=== PATIENT | female | born 1960 | race Caucasian/White ===

== ENCOUNTER 2016-10-24 05:18 | Inpatient (IN) | payer BC ==
[~2016-10-24] VITALS: Ht 172.7 cm; Wt 112.2 kg
--- NOTE | ~2016-10-24 | DS ---
[facility]GE[facility] 56 Y [address] ROOM: [place] [address] LOCATION: GPCU ADMIT DATE: 10/24/2016 Discharge Summary DISCHARGE DATE: 10/27/2016 FAMILY PHYSICIAN: Derrell Chaney MD ATTENDING PHYSICIAN: eDrrell Chaney patient of Dr. Chaney as well as Dr. Linares. REASON FOR ADMISSION: 1. Hdc-DG-tsmpbbu elevation myocardial infarction. 2. Chronic systolic congestive heart failure. 3. Ischemia involving basal inferolateral wall area, which is a small segment, basal anterior small area and basal inferior small area. 4. Her infarct-related vessel is probably obtuse marginal 2. 5. Cardiac catheterization revealed her bypasses to be open and her last stent placed about a year ago to be open. 6. Left ventricular ejection fraction has decreased from 40% to 45% in October 2015 to about 30% now by echo and 28% by nuclear study. 7. Moderate mitral stenosis. 8. Moderately dilated left ventricle with moderate to severe diffuse hypokinesia. 9. Morbid obesity. 10. Rheumatoid arthritis. 11. Type 2 diabetes. 12. Hypertension. 13. Chronic immunosuppression. 14. Mixed dyslipidemia. 15. Multiple myocardial infarctions in the past in 1999 and 2008. 16. Peripheral neuropathy. 17. Degenerative joint disease. Last cardiac catheterization and bypass grafting was in 2008 in [facility] with a mitral valve repair at that time. HOME MEDICATIONS: 1. Aspirin 325 mg a day. 2. Atorvastatin 80 mg a day. 3. Wellbutrin SR 150 mg every day. 4. Carvedilol 6.25 b.i.d. 5. Zyrtec 10 mg a day. 6. Ferrous sulfate 325 mg a day. 7. Lasix 40 mg a day. 8. Gabapentin 300 mg 3 times a day. 9. Insulin. 10. Levothyroxine 125 mcg once a day. PATIENT'S NAME: GONZALES [facility] AGE: 56 Y [address] ROOM: [place] [address] LOCATION: GPCU ADMIT DATE: 10/24/2016 Discharge Summary DISCHARGE DATE: 10/27/2016 FAMILY PHYSICIAN: Derrell Chaney MD ATTENDING PHYSICIAN: Derrell Chaney 11. Magnesium oxide 400 mg every day. 12. Methotrexate 2.5 mg, 20 mg on Sunday. 13. Multivitamin once a day. 14. Entresto one b.i.d. 15. Senna, acetaminophen, and tramadol. 16. Glimepiride 2 mg 3 times a day. 17. Aspirin 325 mg a day. 18. Clopidogrel 75 mg a day. 19. Xeljanz. 20. Prednisone 5 mg a day. 21. Metformin, she can start taking from Sunday 1 gram twice a day. Lisinopril and Aldactone were discontinued in the place of Entresto. Simvastatin was discontinued in the place of atorvastatin. HOSPITAL COURSE: The patient's chest pain resolved by next day and it was clear she had a wgv-NS-wmmhafq elevation TX. Her EKG, however, showed no acute changes. She had a cardiac catheterization, which suggested the possibility of a small second obtuse marginal to be the infarct-related vessel. Her stent from previous year was widely patent in the proximal LAD. All her bypasses seemed to be working appropriately. She does have moderate MS. Her EF, however, had considerably decreased. The small areas of ischemia probably correspond to the smaller branches having lesions. The wisdom of trying to get these opened up is somewhat questionable at this time, but it is always a possibility to look at the right coronary artery in terms of intervention. I am planning on sending her home since the LV function has decreased considerably compared to 1 year ago on Life Vest given her young age. If the belief is that the non-STEMI caused her EF to drop, she may actually become a candidate for ICD in approximately a month or if this is more chronic than that, maybe she ought to be on medical treatment for 3 months before checking her EF and considering BiV-ICD. I have made arrangements for her to follow up with Dr. Jasper Linares. MD RAS ACUNA/zina /[id number] d: 10/27/162251 t: 10/31/16 1234, DISCHARGE SUMMARY
--- NOTE | ~2016-10-24 | ESTC ---
Cardiac Perfusion Imaging Demographics Patient Name GONZALES Shannon Gender Female Patient Number [id number] Race Visit Number [id number] [place] [id number] Room Number G6307 Accession Number [id number] Height 68 inches Date of 1960 Weight 239 pounds Interpreting Sam Holbrook Date of study Physician Supervising /GISSELP Sam Holbrook NM Technologist Radha Matthews MD Ordering Physician Sam Holbrook Stress Drew North MD crime lab technician RVT Stress ECG Reading Sam Holbrook Nurse Dennis Zepeda Physician undercover agent Admit Source:Emergency department. Procedure Type: Nuclear Stress Test:Pharmacological, Lexiscan, Cardiolite Stress Test Indications: NSTEMI. Risk Factors The patient risk factors include:prior PCI;prior CABG;obesity, former tobacco use, treated hypercholesterolemia, treated hypertension, family history of premature CAD, insulin treated diabetes mellitus, last creatinine: 0.9 mg/dl, prior valve surgery/procedure , dyslipidemia, renal failure, prior RI and creatinine clearance: 122.28 ml/min. Conclusions Summary No TID. Medium apical moderate to severe fixed defect most consistent with prior RI. Small moderate ischemia involving 1.mid inferolateral,2.basal anterior and 3.basal inferior segments. LVEF:28%. Severe diffuse hypokinesia noted. Stress Protocols Resting ECG RSR. Pre-stress physical exam: Un changed. Predicted HR: 166 bpm ECG Findings No ECG changes suggestive of ischemia. Arrhythmias No rhythm abnormality. Symptoms None. Stress Interpretation Asymptomatic with Lexiscan. Mildly hypertensive BP response. No ischemia. No arrythmias. Imaging Results High risk findings Summed scores - Summed stress score: 24 - Summed rest score: 12 - Summed difference score: 12 Stress ejection Ejection fraction:28 % EDV :312 ml ESV :224 ml Stroke volume :88 ml LV mass :287 gr LV size:Enlarged LV LV systolic function impairment: Severe Imaging Protocols Rest Stress Isotope:Tc99m Sestamibi IV Isotope: Tc99m Sestamibi IV Isotope dose:14.38 mCi Isotope dose:39.6 mCi Date:10/26/2016 07:53 Date:10/26/2016 10:32 Technique: SPECT Technique: Gated Supine SPECT Supine IV remains in place after procedure. Scan Time:45-60 minutes post Scan Time:45-60 minutes post injection injection Procedure Medications - Regadenoson (Lexiscan) 0.4 mg IV over 10-15 sec. I.V. 0.4 mg. Medical History Admission Medications + +------+ + +---------+ + !Name !Dosage!Times per day !Start date!Stop date!Details ! + +------+ + +---------+ + !Statin (any) ! ! ! ! ! ! + +------+ + +---------+ + !Aspirin (any) ! ! ! ! ! ! + +------+ + +---------+ + !Beta Jessee (any) ! ! ! ! ! ! + +------+ + +---------+ + !Clopidogrel ! ! ! ! ! ! + +------+ + +---------+ + !SHY Inhibitor (any) ! ! ! ! ! ! + +------+ + +---------+ + Admission Data Admission date: 10/24/2016 Admission Time: 06:46 Hospital Status: Inpatient. Signatures dtt: Sheron Vargas dtd: Physician Self Edit
--- NOTE | ~2016-10-24 | CATH ---
Cardiac Diagnostic Report Demographics Patient Name GONZALES Shannon Gender Female Date of 1960 Age 56 year(s) Patient Number [id number] Date of Study 10/27/2016 Visit Number [id number] Room Number G6307 [place] [id number] Ht 172.72 cm Wt 108.4 kg Referring Sam Primary Physician Physician Sheron OCAMPO Performing Sam Secondary Physician Physician Sheron Murillo MD Diagnostic Sam Assisting Physician Physician Sheron OCAMPO Interventional Physician Intern Retail Physician Addendum Added procedure description Findings and Conclusions Diagnostic Findings and Conclusion LVEDP:18 SV graft to PDA:100%. Stent to mid LAD done in 2016 is patent. RCA appears codominant. JAMA is most likeky OM2. Diagnostic Recommendations 1.Stress? 2.Medical management. Procedure Description The patient was brought to the diagnostic cardiac catheterization-EP laboratory in the fasting, non-sedated state. Informed consent was obtained in the written and verbal form after the risks and benefits were explained. The patient had no further questions and agreed to proceed. The planned puncture-incision site(s) were shaved and prepped with ChloraPrep and draped in the usual sterile manner. Conscious sedation, supplemental oxygen, and pain control medications were delivered by a registered nurse under physician guidance. Surface ECG rhythm, blood pressure measurement, and pulse oximetry were monitored throughout the procedure. Arterial access. The access site was infiltrated with lidocaine. The vessel was entered with the Seldinger technique. A sheath was advanced into the vessel and used for catheter placement. Selective left coronary angiography. A catheter was advanced into the left coronary vessel ostium under Fluoroscopic guidance. Contrast was injected by hand. Images were obtained in multiple projections. Selective right coronary angiography. A catheter was advanced into the right coronary vessel ostium under fluoroscopic guidance. Contrast was injected by hand. Images were obtained in multiple projections. Selective SVG angiography. A catheter was advanced into the graft proximal anastomosis under fluoroscopic guidance. Contrast was injected by hand. Images were obtained in multiple projections. Selective SVG angiography. A catheter was advanced into the graft proximal anastomosis under fluoroscopic guidance. Contrast was injected by hand. Images were obtained in multiple projections. Left heart catheterization. A catheter was advanced across the aortic valve to the left ventricle under fluoroscopic guidance. Resting hemodynamics were obtained. Arterial artery hemostasis. Hemostasis was achieved. The patient was transferred to a regular nursing floor via cart accompanied by a nurse. The patient left the laboratory in stable condition. Procedure Procedure Type Diagnostic procedure Angiographic Findings Dominance: Mixed Cardiac Arteries and Lesion Findings LMCA: Minor Luminal Irregularities. LAD: Minor Luminal Irregularities.Stent patent. Retrograde collaterals to the Right. Diagonal:100%.There is a previous stent on Mid LAD Mid subsection. LCx: Minor Luminal Irregularities.OM1 proximally tapers to 80%. Distal OM2:100%. RCA: Minor Luminal Irregularities.Co dominant vessel.Proximal 80%. There is mild diffuse disease noted. Cardiac Grafts - There is a Vein graft that originates at the Aorta Right and attaches to the 1st Diag (Free ELDON to BERMAN to RI and OM1 is patent.) and to the Prox CX (Y graft). - There is a Vein graft that originates at the Aorta Right and attaches to the R PDA (SV graft to PDA 100%.). Coronary Tree Procedure Data Procedure Date Date: 10/27/2016Start: 09:18 AM Medical History Allergies - Morphine. - Morphine. - Other:(ciprofloxacin). Risk Factors The patient risk factors include:prior PCI;prior CABG;obesity, treated hypercholesterolemia, treated hypertension, family history of premature CAD, insulin-treated diabetes mellitus, last creatinine: 0.9 mg/dl, creatinine clearance: 122.28 ml/min, prior valve surgery/procedure, dyslipidemia, renal failure, former tobacco use and prior CA . Admission Data Admission Date: 10/24/2016 Admission Time: 06:46 AM Admit Source: Emergency department Insurance Payors: Private health insurance. Admission Medications + +------+------+ + + + + !Medication !Dosage!Times !Last !Last !Administered !Comments ! ! ! !Per !Delivery !Delivery ! ! ! ! ! !Day !Date !Time ! ! ! + +------+------+ + + + + !Statin (any)! ! ! ! ! ! ! + +------+------+ + + + + !Aspirin ! ! ! ! ! ! ! !(any) ! ! ! ! ! ! ! + +------+------+ + + + + !Beta Jessee! ! ! ! ! ! ! !(any) ! ! ! ! ! ! ! + +------+------+ + + + + !Clopidogrel ! ! ! ! ! ! ! + +------+------+ + + + + !SHY ! ! ! ! ! ! ! !Inhibitor ! ! ! ! ! ! ! !(any) ! ! ! ! ! ! ! + +------+------+ + + + + Clinical Evaluation Leading to Procedure - The patient's CAD presentation was assessed as: Non-STEMI.The symptom onset was first noted on 10/24/2016 12:00 AM(time was estimated). Hemodynamics Condition: Rest O2 Consumption: Estimated: 294.80 Shunts Oxygen Values O2 Capacity 127.84 O2 Consumption 294.8 Discharge Data Discharge Date: 10/28/2016 Hospital Status: Inpatient Signatures dtt: Sheron Vargas dtd: 10/27/16 0918 Physician Self Edit
--- NOTE | ~2016-10-24 | ER ---
PATIENT'S NAME: ALISSA ROLON [facility] AGE: 56 Y [address] ROOM: [place] [address] LOCATION: [facility] ADMIT DATE: 10/24/2016 ER/Outpatient Report DISCHARGE DATE: FAMILY PHYSICIAN: Derrell Chaney MD ATTENDING PHYSICIAN: Shaji Flores Admission date and time documented on the medical record. I saw the patient at 0520 hours. CHIEF COMPLAINT: Chest pain. HISTORY OF PRESENT ILLNESS: The patient is a 56-year-old female who comes in with onset of left anterior chest pain radiating to her left jaw and down to her left shoulder down her left arm to the elbow. She was woken from sleep about 0400 hours with this pain. She had a short episode around 1330 hours yesterday afternoon, relieved with nitroglycerin. Paramedics were dispatched and brought the patient into the emergency room for evaluation via ambulance. En route, the patient was started on IV nitroglycerin drip 20 mcg when she got here to the emergency department. The patient got 4 baby aspirin orally en route in the ambulance. On arrival, the patient was having a 4/10 left anterior chest pain. Some shortness of breath. Did have some initial diaphoresis, lightheadedness and nausea. The nausea and diaphoresis resolved. Still little bit of lightheaded. No syncope or near syncope. No fall or trauma. No recent colds, coughs, flus, fever, chills, or sweats. No headache, eyes, ears, nose, throat, neck, or spine pain. No abdominal pain, vomiting, diarrhea or urinary frequency, urgency, or dysuria. No joint or muscle swelling, redness, or pain. No skin eruptions or rash. Does have a history of hypothyroidism and insulin-dependent diabetes mellitus type 1. Does have some peripheral neuropathy. No other neuro changes. No psych issues. HOME MEDICATIONS: See attached medication list. ALLERGIES: 1. MORPHINE SULFATE. 2. CIPRO. SOCIAL HISTORY: Nonsmoker, nondrinker. SIGNIFICANT PAST MEDICAL HISTORY: 1. Atherosclerotic ischemic heart disease. 2. Coronary artery disease status post myocardial infarction. [facility]GE[facility] 56 Y [address] ROOM: [place] [address] LOCATION: [facility] ADMIT DATE: 10/24/2016 ER/Outpatient Report DISCHARGE DATE: FAMILY PHYSICIAN: Derrell Chaney MD ATTENDING PHYSICIAN: Shaji Flores 3. Insulin-dependent diabetes mellitus type 1. 4. Hypertension. 5. Hypothyroidism. 6. Cervical spinal stenosis. 7. Dyslipidemia. 8. Peripheral neuropathy. 9. Congestive heart failure. 10. Degenerative osteoarthritis. 11. Chronic fatigue syndrome. 12. Rheumatoid arthritis. 13. Valvular heart disease. OPERATIONS: 1. Neck surgery. 2. Cardiac catheterization with PTCA and stenting. Last stent was in June [address] Linares. 3. Three-vessel coronary artery bypass graft. 4. Mitral valve replacement. 5. delivery. 6. Foot surgery. 7. Laser heart surgery. REVIEW OF SYSTEMS: All systems reviewed by me are negative with the exception of those discussed in the history of the present illness. PHYSICAL EXAMINATION: VITAL SIGNS: Temperature 97.2 tympanic, pulse 85, respirations 20, blood pressure 147/69, O2 saturation on 2 L of oxygen per nasal cannula is 95%. HEAD: Normocephalic. EYES, EARS, NOSE, THROAT: Clear. NECK: Negative. SPINE: Negative. LUNGS: Clear. No rales, rhonchi, or wheezes. HEART: Regular. Pulses are palpable. No chest wall or rib cage pain to palpation. ABDOMEN: Obese, soft, nondistended, nontender. Good bowel tones. No organomegaly or abnormal mass palpable. No CVA tenderness. EXTREMITIES: Without peripheral edema, cyanosis, or deformity. Neurovascularly intact. SKIN: Clear. LABORATORY DATA AND X-RAYS: EKG shows sinus rhythm. No acute ST elevation. She does have some questionable lateral ischemic changes. No arrhythmia. Chest x-ray pending. PATIENT'S NAME: ALISSA ROLON [facility] AGE: 56 Y [address] ROOM: [place] [address] LOCATION: [facility] ADMIT DATE: 10/24/2016 ER/Outpatient Report DISCHARGE DATE: FAMILY PHYSICIAN: Derrell Chaney MD ATTENDING PHYSICIAN: Shaji Flores Laboratory studies including CBC, CMS, CPK, CK-MB, troponin, magnesium, protime and proBNP are pending. EMERGENCY DEPARTMENT COURSE: I did continue the IV nitroglycerin drip and will titrate for chest pain. The patient was given 4 baby aspirin orally en route in the ambulance. IMPRESSION: 1. Chest pain. The patient has a history of atherosclerotic ischemic heart disease, coronary artery disease and has had previous myocardial infarction. Last cardiac catheterization was in August 2015 when she got a stent. She does have some lateral ischemic changes on her EKG, but no acute ST elevation or arrhythmia. Need to rule out acute coronary syndrome. This could be unstable angina. The patient has risk factors and the fact that she has known coronary artery disease, has known insulin-dependent diabetes mellitus type 1, has hypertension, has dyslipidemia. 2. Insulin-dependent diabetes mellitus type 1. 3. Hypertension. 4. Hypothyroidism. 5. Dyslipidemia. 6. Congestive heart failure. 7. Valvular heart disease with mitral valve replacement. 8. Chronic fatigue syndrome. 9. Rheumatoid arthritis. 10. Peripheral neuropathy. PLAN: Transfer the patient's care over to Dr. Johnson at shift change. I asked Dr. Johnson to follow up with the patient's laboratory studies, final diagnosis, and treatment plan. The patient most likely will need to be hospitalized for further cardiac evaluation. Discussion ensued with the patient concerning my findings and recommendations, she understands. MD NAN RIOS/zina /[id number] d: 10/24/16611 t: 10/24/161811, OUTPATIENT REPORT
--- NOTE | ~2016-10-24 | HP ---
PATIENT'S NAME: ALISSA ROLON [facility] AGE: 56 Y [address] ROOM: [address] [address] LOCATION: GPCU ADMIT DATE: 10/24/2016 History & Physical DISCHARGE DATE: FAMILY PHYSICIAN: ANTHONY RUIZ MD ATTENDING PHYSICIAN: ANTHONY RUIZ DATE OF SERVICE: 10/24/2016 CHIEF COMPLAINT: "My chest hurts." HISTORY OF PRESENT ILLNESS: Ms. Rolon is a 56-year-old patient with a very complex past medical history who presents to admission at [facility] from the [facility] Emergency Department for chest pains. The patient was in her usual state of health when she began experiencing chest pressure in her left chest that radiated down to her arm 3 days prior to admission. She took a nitro and has relieved her pain completely. This occurred 3 days and 2 days prior to admission respectively. On the day of admission around 0400 hours, the patient reports that she had the same pressure. She felt like an elephant was sitting on her chest. She had pain up into the left jaw as well as radiating down the left arm. It did not respond to the first nitro and so the patient took a second nitro. It still did not respond, so she took a third nitro. At that point in time, the patient's became very concerned and called the ambulance to bring her into the [facility] Emergency Department. Upon reaching the Emergency Department, the patient's blood pressure was 147/69, pulse 85, respirations 20, temperature was 97.2. She was 95% on 2 L of oxygen. She had several tests done at that time. EKG showed nonspecific T- wave changes, but possible lateral ischemia. She had a CBC that overall was unremarkable. She elevated D-dimer of 1.15. CMS showed a GFR of 52, creatinine of 1.1, BUN was 17. ProBNP was elevated at 1397. She had an initial set of enzymes that was 0.047 and subsequent enzymes were 0.052. Chest x-ray was overall unremarkable. She also had a thyroid that was checked at that time that was within normal limits. She was initiated on a heparin drip as well as a nitro drip that did completely resolve her pain. She was sent to the floor for subsequent management and evaluation. Upon reaching the floor, the patient was complaining of 1/10 chest pain that was markedly decreased from where she was before. She really had no other complaints at that time. REVIEW OF SYSTEMS: A full 12-point review of systems was done and was found to be unremarkable except for those noted in the HPI. [facility] 56 Y [address] ROOM: [place] [id number] LOCATION: GPCU ADMIT DATE: 10/24/2016 History & Physical DISCHARGE DATE: FAMILY PHYSICIAN: ANTHONY RUIZ MD ATTENDING PHYSICIAN: ANTHONY RUIZ ALLERGIES: 1. CIPRO, RASH. 2. GRASSES CAUSE NASAL CONGESTION. 3. MORPHINE CAUSES ANAPHYLAXIS. PAST MEDICAL HISTORY: 1. Chronic ischemic heart disease. 2. 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 3. Fractured ankle. 4. Hypertension. 5. Hypothyroidism. 6. Immunosuppression. 7. Mitral valve disorder. 8. Mixed dyslipidemia. 9. Morbid obesity. 10. Myocardial infarction in 1999 and 2008 with status post stenting as well as a cardiac catheterization in 2016. 11. Neuropathy. 12. Osteoarthritis. 13. Rheumatoid arthritis. Multiple sites of positive rheumatoid factor. 14. Ulceration of toe secondary to diabetes mellitus type 2. PAST SURGICAL HISTORY: 1. ACL repair. 2. C-sections. 3. Coronary artery bypass graft in 1999 and 2008. 4. Heart catheterization in 2016. SOCIAL HISTORY: The patient has never used alcohol. She does use caffeine everyday. She has not served in the . Exercises occasionally. She is and retired. She has never used tobacco and does use her seat belts. FAMILY HISTORY: Brother, father, mother, and sister all have diabetes mellitus type 2. Brother, father, and sister all have cardiovascular disease. She has cancer in her mother as well as her father. PHYSICAL EXAMINATION: GENERAL: Obese and pleasant adult female, in no acute distress. HEAD: Normocephalic and atraumatic. EYES: Conjunctivae clear. Sclerae white. ENT: Mucous membranes are moist. [facility] 56 Y [address] ROOM: [address] [place], [place] [address] LOCATION: GPCU ADMIT DATE: 10/24/2016 History & Physical DISCHARGE DATE: FAMILY PHYSICIAN: ANTHONY RUIZ MD ATTENDING PHYSICIAN: ANTHONY RUIZ HEART: Regular rate and rhythm without murmurs, rubs, clicks, gallops. LUNGS: Clear to auscultation in all rmaires bilaterally. ABDOMEN: Soft, nontender, and nondistended. Bowel sounds are positive. EXTREMITIES: Warm and well perfused. No clubbing, cyanosis, or edema. NEUROLOGIC: Alert and oriented. LABORATORY AND IMAGING DATA: As per HPI. IMPRESSION/PLAN: A 56-year-old female with known coronary artery disease with anginal chest pain. 1. Anginal chest pain. 2. Coronary artery disease with coronary artery bypass graft as well as stenting of mohegan heart, but transplanted vessels. 3. Hypertension. 4. Mitral valve disorder. The patient will be seen by Cardiology. We will trend out her troponins as it appears that she is having NSTEMI. We will have her evaluated by Cardiology for consideration of coronary catheterization versus stress testing. 5. Diabetes mellitus type 2 with neurologic manifestations, insulin requiring. Last A1c overall was 6.9 in July 2017. She is doing well. We will just have her on sliding scale insulin as well as her usual Lantus dosing here in the hospital. 6. Shortness of breath and elevated D-dimer. The patient will need a V/Q scan to rule out a pulmonary embolus as her GFR is 52. 7. Chronic kidney disease, associated with diabetes mellitus type 2. We will renally dose all medications to avoid nephrotoxic agents. 8. Morbid obesity. The patient would benefit from outpatient counseling. 9. Rheumatoid arthritis. Continue with the patient's home medication regimen. 10. Neuropathy. Continue with home medication regimen. 11. Mixed dyslipidemia. Continue with home medication regimen. 12. Immunosuppression. We will be careful, precautions are on this patient. 13. Fluids: The patient was receiving hydration for possible CT scan, but we will discontinue that. Nutrition: N.p.o. for now. Electrolytes: Monitor daily. CODE STATUS: Full code. The patient will be in observation at this time. We will just see how she does pending Cardiology consultation. PATIENT'S NAME: ALISSA ROLON [facility] AGE: 56 Y [address] ROOM: [place] [address] LOCATION: GPCU ADMIT DATE: 10/24/2016 History & Physical DISCHARGE DATE: FAMILY PHYSICIAN: ANTHONY RUIZ MD ATTENDING PHYSICIAN: ANTHONY RUIZ ANTHONY RUIZ MD BAB/modl /[id number] D: [id number] T: [id number] HISTORY & PHYSICAL
--- NOTE | ~2016-10-24 | ER ---
PATIENT'S NAME: ALISSA ROLON [facility] AGE: 56 Y [address] ROOM: [address] [address] LOCATION: GPCU ADMIT DATE: 10/24/2016 ER/Outpatient Report DISCHARGE DATE: FAMILY PHYSICIAN: ANTHONY CHANEY MD ATTENDING PHYSICIAN: ANTHONY CHANEY Time of Arrival: 0518 hours. HISTORY OF PRESENT ILLNESS: The patient was initially seen by Dr. Flores. I assumed care at 6:00 a.m. The patient presented with chest pain. She has known coronary artery disease and CABG x2 back in the and then again in 2008. Dr. Linares is her machine tool dresser. She took 3 nitroglycerin at home, which did help to change her pain from a 10 to a 7. On arrival here, she had pain at 4, was placed on a nitroglycerin drip, and her pain has improved to a 2 or 3. She is feeling much better. Lab work returned showing an elevated D-dimer, but her GFR is a little bit low at 54, creatinine 1.0, D-dimer is 1.15. Cardiac enzymes, troponin I was elevated at 0.047, CK-MB is 0.7. Her proBNP is 1397. She is on Plavix but not other oral anticoagulation. She has no contraindications to anticoagulation. EKG showed sinus arrhythmia at 85 beats per minute, no acute ST elevation or depression. She did have a run of about 40 seconds of V-TACH, and was initiated on amiodarone at my arrival, ordered per Dr. Flores. IMPRESSION AND PLAN: 1. Chest pain: Relieved with nitroglycerin. Plan: Acute coronary syndrome orders. Plan for admission per Dr. Chaney with Cardiology consultation. Dr. Watts was notified. The patient had received 4 baby aspirin. She is on a nitroglycerin drip. Heparin will be initiated per acute coronary syndrome protocol. 2. Run of ventricular tachycardia: Amiodarone 150 mg bolus given in the ER. Dr. Watts was notified. 3. Acute renal insufficiency/acute kidney injury: IV fluids, normal saline to run 1 L over 4 hours. Then, we will obtain a PE protocol. 4. Elevated D-dimer and chest pain: PE protocol. The patient is started on heparin per acute coronary syndrome protocol as discussed with Dr. Vargas and Dr. Chaney. 5. Rheumatoid arthritis: Prednisone 5 mg daily and methotrexate. 6. Diabetes mellitus: On Lantus. 7. Coronary artery disease. 8. Hypothyroidism. 9. Hyperlipidemia: The patient is already on a statin, simvastatin. PATIENT'S NAME: ALISSA ROLON [facility] AGE: 56 Y [address] ROOM: [place] [address] LOCATION: [facility] ADMIT DATE: 10/24/2016 ER/Outpatient Report DISCHARGE DATE: FAMILY PHYSICIAN: ANTHONY CHANEY MD ATTENDING PHYSICIAN: ANTHONY CHANEY MD CAR/modl /[id number] d: 10/24/16 0936 t: 10/31/16 1423, OUTPATIENT REPORT
--- NOTE | ~2016-10-24 | ENPV ---
Vascular Lower Extremities DVT Study Procedure Demographics Patient Name ALISSA ROLON Date of Study 10/24/2016 Patient Number [id number] Gender Female Date of 1960 Age 56 Visit Number [id number] Height 68 Weight 238.01 Number Referring Sam Holbrook MD Interpreting Santo Caballero MD Physician Shiv Murillo MD Physician Physician Ordering Sam Payroll Bookkeeper Physician Sheron OCAMPO Composition Weatherboard Applier [facility], [facility] Conclusions Summary No evidence of deep vein thrombosis or superficial thrombophlebitis in the lower extremities bilaterally. Procedure Type of Study: Veins:Lower Extremities DVT Study, Venous Duplex Lower Extremity Bilateral. Indications for Study:Suspected pulmonary embolism. Additional Indications:Elevated D-Dimer Appropriate Use Criteria:9 Allergies - Morphine. Patient Status:Routine. Study Location:Inpatient Portable. Technical Quality:Adequate visualization. Velocities are measured in cm/s ; Diameters are measured in cm Right Lower Extremities DVT Study Measurements Right 2D and Doppler Measurements + + + + +------+------+ + !Location !Visualized!Compressibility!Thrombosis!Signal!Reflux!Reflux ! ! ! ! ! ! ! !(sec) ! + + + + +------+------+ + !GSV Thigh !Yes !Yes !None !Phasic! ! ! + + + + +------+------+ + !Common !Yes !Yes !None !Phasic! ! ! !Femoral ! ! ! ! ! ! ! + + + + +------+------+ + !Prox !Yes !Yes !None !Phasic! ! ! !Femoral ! ! ! ! ! ! ! + + + + +------+------+ + !Mid Femoral!Yes !Yes !None ! ! ! ! + + + + +------+------+ + !Dist !Yes !Yes !None !Phasic! ! ! !Femoral ! ! ! ! ! ! ! + + + + +------+------+ + !Popliteal !Yes !Yes !None !Phasic! ! ! + + + + +------+------+ + !Gastroc !Yes !Yes !None ! ! ! ! + + + + +------+------+ + !PTV !Yes !Yes !None ! ! ! ! + + + + +------+------+ + !Peroneal !Yes !Yes !None ! ! ! ! + + + + +------+------+ + Left Lower Extremities DVT Study Measurements Left 2D and Doppler Measurements + + + + +------+------+ + !Location !Visualized!Compressibility!Thrombosis!Signal!Reflux!Reflux ! ! ! ! ! ! ! !(sec) ! + + + + +------+------+ + !GSV Thigh !Yes !Yes !None !Phasic! ! ! + + + + +------+------+ + !Common !Yes !Yes !None !Phasic! ! ! !Femoral ! ! ! ! ! ! ! + + + + +------+------+ + !Prox !Yes !Yes !None !Phasic! ! ! !Femoral ! ! ! ! ! ! ! + + + + +------+------+ + !Mid Femoral!Yes !Yes !None ! ! ! ! + + + + +------+------+ + !Dist !Yes !Yes !None !Phasic! ! ! !Femoral ! ! ! ! ! ! ! + + + + +------+------+ + !Popliteal !Yes !Yes !None !Phasic! ! ! + + + + +------+------+ + !Gastroc !Yes !Yes !None ! ! ! ! + + + + +------+------+ + !PTV !Yes !Yes !None ! ! ! ! + + + + +------+------+ + !Peroneal !Yes !Yes !None ! ! ! ! + + + + +------+------+ + Signature dtt: JOSE PATINO dtd: 10/24/16 0943 Physician Estuardo Villalta
--- NOTE | ~2016-10-24 | ECHO ---
Transthoracic Echocardiography Report (TTE) Demographics Patient Name ALISSA ROLON Date of Study 10/25/2016 Patient Number [id number] Visit Number [id number] Date of 1960 Room Number G6307 Gender Female Number Age 56 year(s) Referring Sam Holbrook Level Vial Setter Eduard Garner Physician MD Shiv Murillo MD Physician Interpreting Sam Holbrook Cigarette Machine Operator Physician Supervising Ordering Shiv Murillo MD, MD/MLP Physician Nurse Stress Packaging Clerk Conclusions Contractility Score Summary At rest the following contractility abnormalities were noted: Hypokinesis of the Mid hilary-lateral, the Mid inferior, the Mid infero-lateral, the Basal infero-lateral, the Apical inferior, the Basal infero-septal, the Apical lateral, the Basal anterior, the Basal inferior and the Basal hilary-lateral segments; Akinesis of the Mid anterior, the Mid hilary-septal, the Mid infero-septal, the Apical septal, the Basal hilary-septal, the Apical anterior and the Apical cap segments. Summary The estimated left ventricular ejection fraction is 40%. The left ventricle is moderately dilated .Mild assymetric septal left ventricular hypertrophy.LVEF:30%.Severe diffuse hypokinesia involving all LV segments. The mitral valve has been surgically repaired. Moderate mitral valve stenosis. The mean gradient is 9 mmHg. Trivial MR. Mild aortic sclerosis. Trivial TR with normal pulmonary pressures. Procedure Type of Study TTE procedure:2D Echocardiogram, M-Mode, Doppler , Color Doppler, Echo with Contrast. Procedure Date Date: 10/25/2016 Start: 07:47 AM Study Location: Inpatient Portable Technical Quality: Adequate visualization Indications:Coronary artery disease and History of mitral valve repair. Additional Indications:Non-STEMI Appropriate Use Criteria: 9 Patient Status: Routine Contrast Medium: Definity. Amount - 5 ml HR: 88 bpm BP: 133/61 mmHg Allergies - Morphine. - Morphine. - Other:(ciprofloxacin). M-Mode/2D Measurements LV Diastolic Dimension: 6.96 cm LV Systolic Dimension: 5.94 cm LV Septum Diastolic: 0.73 cm LV PW Diastolic: 1.08 cm AO Root Dimension: 2.8 cm Cardiac Output: 6.67 l/min LA Dimension: 4.4 cm EF Estimated: 40 % LVOT: 2.1 cm LVOT VTI: 21.9 cm RV Base: 3.1 cm LV Stroke volume: 75.81 ml RV Length: 7.56 cm TAPSE: 1.6 cm TDI-S': 10.6 cm/s Doppler Measurements AV Peak Velocity: 1.68 m/s MV Peak E-Wave: 1.76 m/s AV Peak Gradient: 11.29 mmHg MV Peak A-Wave: 1.51 m/s AV Mean Gradient: 7 mmHg MV E/A Ratio: 1.17 LVOT Peak Velocity: 1.25 m/s MV P1/2t: 83 msec TR Gradient:16.16 mmHg PV Peak Velocity: 1.5 m/s Estimated RAP:5 mmHg PV Peak Gradient: 9 mmHg Estimated RVSP: 21 mmHg Estimated PASP: 21.16 mmHg E' Septal Velocity: 0.06 m/s A' Septal Velocity: 0.11 m/s E' Lateral Velocity: 0.08 m/s A' Lateral Velocity: 0.12 m/s Findings Left Ventricle The left ventricle is moderately dilated and globular.Mild assymetric septal left ventricular hypertrophy.LVEF:30%.Moderate to severe diffuse hypokinesia.Lateral wall moves the best. Right Ventricle Normal right ventricle structure and function. Left Atrium Normal left atrial size. Right Atrium Normal right atrial size. Mitral Valve The mitral valve has been surgically repaired. Trivial mitral regurgitation by color Doppler. Moderate mitral valve stenosis. The mean gradient is 9 mmHg. Aortic Valve The aortic valve is mildly sclerotic. Tricuspid Valve Trivial tricuspid regurgitation by color Doppler. Pulmonic Valve Normal pulmonic valve structure and function. Pericardial Effusion No evidence of pericardial effusion. Miscellaneous Visualized portions of the aortic root and ascending aorta appear normal in size. Pleural Effusion No evidence of pleural effusion. Contractility Score LV regional wall motion:(0-Non visualized 1-Normal 2-Hypokinesis 3-Akinesis 4-Dyskinesis 5-Aneurysm) Signature dtt: Sheron Vargas dteffie: 10/25/16 0747 Physician Self Edit
--- NOTE | ~2016-10-24 | CON ---
PATIENT'S NAME: ALISSA ROLON [facility] AGE: 56 Y [address] ROOM: [address] [place] [id number] LOCATION: GPCU ADMIT DATE: 10/24/2016 Consultation DISCHARGE DATE: FAMILY PHYSICIAN: ANTHONY CHANEY MD ATTENDING PHYSICIAN: ANTHONY CHANEY REFERRING PHYSICIAN: Eric Plummer MD REFERRING PHYSICIAN: Anthony Chaney MD. REASON FOR CONSULTATION: Chest pain. HISTORY OF PRESENT ILLNESS: This is a 56-year-old female with a quite extensive cardiac history. She has had open heart surgery in year 1999 with a redo in 2008 with an RI and valvular repair. In August of 2015, she underwent a PTCA and stent of the LAD. At that time, she was found to have ischemic cardiomyopathy with an EF of 33%. In October of 2015, she underwent an echocardiogram again, and at that time, her EF was a little bit better at 40% to 45%. She reports that she has had chest pain this past week a couple of different time. She would take a nitroglycerin and it would go away. On the day of admission, she awoke around 4 o'clock in the morning with some chest heaviness that was fairly significant, causing her to be diaphoretic and nauseated. She took nitroglycerin without any relief. She took another one without any relief, and then her called the ambulance. She was given nitroglycerin and 4 baby aspirin in the ambulance and started to get some relief of her chest pain. She was then admitted through the emergency room. At that time, she was started on nitroglycerin drip, and her pain became significantly better. Her nausea and diaphoresis resolved at that time as well. She reports that she had not been short of breath until today when she was having the chest pain. She denies problems with orthopnea or PND. She has felt palpitations in the form of fluttering sensation off and on, and at times, it causes a little lightheadedness. There has been no report of increased peripheral edema. She states that her weight has been stable. She and her did take a long trip to [place] via car to see her brother, who was being scheduled for surgery for an LVAD. He did 2 days prior to his scheduled surgery. He was aged 64. She also had a sister, who a while back from cardiac aneurysm, and she was a younger as well. The EKG was not really showing any new changes, but while in the ER, she did have a run of about 40 seconds of ventricular tachycardia. She was then initiated on amiodarone therapy. Currently, she is describing her chest pain as a 1/10. Cardiac enzymes show a troponin of 0.047 to 0.052. CPK and CK-MB are both normal. Her proBNP was a little bit elevated at 1397. She denies PATIENT'S NAME: ALISSA ROLON [facility] AGE: 56 Y [address] ROOM: [address] [address] LOCATION: GPCU ADMIT DATE: 10/24/2016 Consultation DISCHARGE DATE: FAMILY PHYSICIAN: ANTHONY CHANEY MD ATTENDING PHYSICIAN: ANTHONY CHANEY any calf tenderness, and she has not been hypoxic. PAST MEDICAL HISTORY: 1. Coronary artery disease. 2. Chronic ischemic cardiomyopathy, Coke Functional Class II to III. 3. Essential hypertension. 4. Diabetes mellitus type 2. 5. Hypothyroidism. 6. Immunosuppressed status. 7. Neuropathy. 8. Osteoarthritis. 9. Rheumatoid arthritis. 10. Large varicosities. 11. High-risk medications - Plavix. 12. Dyslipidemia. 13. Depression. PAST SURGICAL HISTORY: 1. in 1984. 2. ACL repair in 2008. 3. Open heart surgery in 1999. 4. CABG with valve repair in 2008. 5. Left heart catheterization in 2008. 6. Spine surgery in 2013. 7. Left heart catheterization with LAD stent placement on August 09, 2015. FAMILY HISTORY: Father at the age of 50. He had pancreatic cancer, cardiovascular disease, diabetes mellitus type 2. Mother at age 78. She had ovarian and uterine cancer as well as coronary artery disease and congestive heart failure. She has a brother, who is alive and well. Her second brother had CABG at age 40 with a redo later and then had heart failure and recently at the age of 64. She has another brother, who has throat cancer. One sister had an RI at age 44. Second sister with an RI at age 50. Third sister of an aneurysm at the age of 42. Fourth sister of uterine cancer, and she had coronary artery disease and was on dialysis. She does have a daughter who is alive and well. SOCIAL HISTORY: She is . She does not smoke. She does not use alcohol. ALLERGIES: TO SULFA, CAUSING SWELLING; ALSO ALLERGIC TO CIPRO. CURRENT MEDICATIONS: PATIENT'S NAME: ALISSA ROLON [facility] AGE: 56 Y [address] ROOM: [place] [address] [facility] ADMIT DATE: 10/24/2016 Consultation DISCHARGE DATE: FAMILY PHYSICIAN: ANTHONY CHANEY MD ATTENDING PHYSICIAN: ANTHONY CHANEY 1. Aspirin 325 mg daily. 2. Wellbutrin SR 150 mg b.i.d. 3. Coreg 6.25 mg b.i.d. 4. Zyrtec 10 mg every h.s. 5. Clopidogrel 75 mg daily. 6. Lasix 40 mg daily. 7. Neurontin 300 mg t.i.d. 8. Amaryl 2 mg t.i.d. with meals. 9. Lantus 80 units subcu. 10. Novolin R subcu. 11. Levothyroxine 125 mcg p.o. every day. 12. Lisinopril 10 mg p.o. every a.m. 13. Metformin 1000 mg b.i.d. 14. Methotrexate 20 mg p.o. every 7 days, on Sunday. 15. Multivitamin daily. 16. Prednisone 5 mg she takes 15 mg every day p.r.n. arthritis. 17. Docusate sodium one tablet daily. 18. Zocor 40 mg every h.s. 19. Xeljanz XR 11 mg p.o. every a.m. 20. Currently, she is on heparin, nitroglycerin, and amiodarone. REVIEW OF SYSTEMS: GENERAL: She has felt pretty good, but she has been under a lot of stress with of her brother. HEAD: No history of headache. EYES: She does wear corrective lenses. EARS: No problems with hearing. NOSE: No epistaxis or rhinorrhea. MOUTH: She does have a partial upper plate. NECK: No difficulty swallowing. PULMONARY: No cough or hemoptysis. She was short of breath today with her chest pain but denies exertional shortness of breath. GASTROINTESTINAL: She denies nausea or vomiting now. She has nausea and vomiting prior to admission. GENITOURINARY: Positive for stress incontinence. She is post menopausal. MUSCULOSKELETAL: She does have a left footdrop. She denies myalgias on statin therapy. She does have varicose veins. PHYSICAL EXAMINATION: VITAL SIGNS: She is 5 feet 8 inches, weighs 238 pounds. SKIN: Warm, dry, and pink. HEENT: Pupils are equal, round, and react briskly. NECK: Soft and supple. No lymphadenopathy. No thyromegaly. JVD is flat. CV: Regular with a normal S1 and S2. LUNGS: Sounds are clear anteriorly and posteriorly. PATIENT'S NAME: ALISSA ROLON [facility] AGE: 56 Y [address] ROOM: [place] [address] LOCATION: GPCU ADMIT DATE: 10/24/2016 Consultation DISCHARGE DATE: FAMILY PHYSICIAN: ANTHONY CHANEY MD ATTENDING PHYSICIAN: ANTHONY CHANEY ABDOMEN: Soft. Bowel sounds are present. No pain is elicited on palpation. PMI is nondisplaced. There is no murmur, rub, or click. ABDOMEN: Obese, but soft. EXTREMITIES: No peripheral edema. There is no tenderness noted in the calf. She does have large varicosities. Distal pulses show 2+, and there is no peripheral edema. ASSESSMENT AND PLAN: 1. Chest pain and shortness of breath with diaphoresis. We will continue the nitroglycerin, and I get a third set of enzymes at 10 o'clock. 2. Ventricular tachycardia. Her magnesium today was 1.6. We will replace that with magnesium sulfate. 3. Hypokalemia. We will replace the potassium with KCl. 4. Hypothyroid. With the addition of amiodarone therapy, we will also add a TSH for baseline. 5. Diabetes mellitus. This is being covered by her primary care physician. 6. Dyslipidemia. She will continue with the simvastatin therapy. The assessment and plan, history of present illness, and physical exam are per Dr. Plummer, who is covering in Dr. Debora Linares's absence. KENNEDY REAVES APRN FOR ERIC PLUMMER MD TGP/modl /[id number] d: 10/24/16 2248 t: 11/06/16 1826, CONSULTATION REPORT
[~2016-10-24 05:18] MED LIST changes: -DELTASONE20 MG PO; -DELTASONE5 MG PO; -DOCUSATE SODIU1 EACH PO; -ENTRESTO 24 MG1 EACH PO; -FEOSOL325 MG PO; -FLAX OIL1000 MG PO; -FLONASE 50 MCG/16 GM NOSE; -FOLIC ACID 40400 MCG PO; -LEVAQUIN 750 M750 MG PO; -LIPITOR80 MG PO; -MAG-OX-400(241400 MG PO; -PRINIVIL (ZESTRI5 MG PO; -RANEXA ER500 MG PO; -SENOKOT-S TABL1 EACH PO; -TYLENOL EXTRA500 MG PO; -ULTRAM50 MG PO; -ZYLOPRIM100 MG PO
[2016-10-24 05:38] LABS: BASOPHIL % 0.5 %; EOSINOPHIL # 0.2 K/uL (0.0-0.5); EOSINOPHIL % 2.1 %; HEMATOCRIT 36.8 % (33.0-46.0); HEMOGLOBIN 11.4 g/dL (10.0-15.0); IMMATURE GRANULOCYTE # 0.1 K/uL (0.0-0.3); IMMATURE GRANULOCYTE % 0.6 %; LYMPHOCYTE # 2.9 K/uL (0.8-4.0); LYMPHOCYTE % 33.7 %; MCH 28.4 pg (27.0-34.0); MCV 91.8 fl (83.0-98.0); MONOCYTE # 0.6 K/uL (0.0-1.0); MONOCYTE % 7.4 %; MPV 9.1 fl (9.4-12.4); NEUTROPHIL # (ANC) 4.9 K/uL (1.8-7.8); NEUTROPHIL % 55.7 %; NRBC % 0 /100WBC (0-0.00); PLATELET COUNT 323 K/uL (150-450); RBC 4.01 M/uL (3.50-5.50); RDW-CV 17.7 % (11.9-14.6); WBC 8.7 K/uL (4.0-11.0)
[2016-10-24 05:48] LABS: PROTIME 10.6 SECONDS (9.6-11.1); PTT 26 SECONDS (25-32)
[2016-10-24 06:00] LABS: ALBUMIN 3.1 gm/dL (3.5-5.0); ANION GAP 13.9 (10.0-19.0); CALCIUM 9.1 mg/dL (8.5-10.5); CREATININE 1.1 mg/dL (0.5-1.1); MAGNESIUM 1.6 mg/dL (1.3-2.6); POTASSIUM 3.9 mMol/L (3.7-5.1); TOTAL BILIRUBIN 0.3 mg/dL (0.0-1.5); TOTAL PROTEIN 7.5 g/dL (6.0-8.4)
[2016-10-24] MEDS ORDERED: DOCUSATE SODIU1 EACH PO (08:55)
[2016-10-24] MEDS ORDERED: DELTASONE5 MG PO (08:56)
[2016-10-24] MEDS ORDERED: NOVOLIN-R100 UNIT/M SUB-Q (09:03)
--- NOTE | 2016-10-24 09:13 | NUR ---
Patient is 56 yo female admitted from ER this am. Patient has recently been in [place] for 6 days. her brother very suddenly of heart attack at age 64. she was there for the . she returned home on , 10/19/16. on Sunday, she had chest pain, and took a nitro, it relieved the pain. on Sunday, she had chest pain again and took a nitro, it relieved the pain. this morning at about 0415, she awoke with severe chest pain, took 3 nitro with no relief, and her called the ambulance and she was brought to the ER. She has an IV infusing in right antecubital space without erythema or edema noted at site. Nitroglycerin and Heparin are both infusing per pumps. patient states her pain is about 1/10 at this time. Patient did accept offer of advanced directive information. booklet was given with instructions for use. Education is given as documented. patient and deny questions at this time. pneumatics are held at this time as patient is on heparin. call light is within reach, patient denies needs. patient is kept NPO at this time as well. Report is given to LUIS ARMANDO Reardon.
--- NOTE | 2016-10-24 11:25 | NUR ---
Introduced self and role of care management to patient. She lives in [place] with her . She states that she is able to do all her own ADL's. She uses a quad base cane. She states that her family assists as needed. She plans on returning home on discharge. She denies any needs at this time. Will continue to follow.
--- NOTE | 2016-10-24 15:40 | NUR ---
D:Patient arrived to floor at 0740. Is alert and orientated. Has Nitro infusing at 20 mcg/min, reports has hardly any chest pain at this time. Is on room air. Heparin infusing at 1000 units/min. Resting in bed. is with patient. Has NS infusing at 250 ml/hr to hydrate for CT with PE protocol. Dr. Watts called for update on patient at 0800. At 0900 Dr. Chaney and Radha Otero INDIGO VAT TENDER CLOTH into see patient. P:Resting. Check for DVT's or PE, monitor for chest pain.
--- NOTE | 2016-10-24 18:29 | NUR ---
Significant Event:Patient remains on Nitro at 20 mcg/min, and Heparin at 1200 units/hr. Next PTTHP at 2044. VQ scan negative. Has had no chest pain since coming to floor. Has been on room air. Will have heart cath tomorrow at 1400. TN-I at 1000-0.053. Did get 2gm Mg IV and 20 mEq of KCl PO. No V-Tach, has been in NSR. Follow up:Monitor for chest pain
[2016-10-25 03:48] LABS: BASOPHIL % 0.3 %; EOSINOPHIL # 0.2 K/uL (0.0-0.5); EOSINOPHIL % 2.3 %; HEMATOCRIT 30.2 % (33.0-46.0); HEMOGLOBIN 9.4 g/dL (10.0-15.0); IMMATURE GRANULOCYTE % 0.6 %; LYMPHOCYTE # 1.7 K/uL (0.8-4.0); LYMPHOCYTE % 24.1 %; MCH 28.6 pg (27.0-34.0); MCHC 31.1 gm/dL (32.0-36.5); MCV 91.8 fl (83.0-98.0); MONOCYTE # 0.8 K/uL (0.0-1.0); MONOCYTE % 11.3 %; MPV 9.6 fl (9.4-12.4); NEUTROPHIL # (ANC) 4.4 K/uL (1.8-7.8); NEUTROPHIL % 61.4 %; NRBC % 0 /100WBC (0-0.00); PLATELET COUNT 251 K/uL (150-450); RBC 3.29 M/uL (3.50-5.50); RDW-CV 17.8 % (11.9-14.6); WBC 7.1 K/uL (4.0-11.0)
[2016-10-25 04:12] LABS: ALBUMIN 2.6 gm/dL (3.5-5.0); ALK PHOS 57 IU/L (33-138); ALT 22 IU/L (12-78); ANION GAP 12.8 (10.0-19.0); AST 16 IU/L (10-40); BLOOD UREA NITROGEN 12 mg/dL (6-24); CALCIUM 8.4 mg/dL (8.5-10.5); CHLORIDE 106 mMol/L (96-110); CO2 24 mMol/L (22-32); CREATININE 0.9 mg/dL (0.5-1.1); ESTIMATED GFR (MDRD EQUATION) > 60; POTASSIUM 3.8 mMol/L (3.7-5.1); SODIUM 139 mMol/L (135-145); TOTAL BILIRUBIN 0.3 mg/dL (0.0-1.5); TOTAL PROTEIN 6.2 g/dL (6.0-8.4)
--- NOTE | 2016-10-25 08:02 | NUR ---
Significant Event: Patient alert and oriented x3. SBP 90s-120s. All other vital signs stable. On RA. Nitro gtt 15-25mcg/min. C/O chest pressure x1 this shift. Nitro titrated as much as pressures would support. No C/O pain since. Heparin gtt at 1500units per protocal. Next PTTHP at 1000. Tramadol 100mg given x1 for C/O feet/leg pain. 1000mg Tylenol given x1 for C/O headache. Both with relief. Up with stand-by assist to bathroom. Patient slept most of the shift. at bedside. Calm and cooperative with all cares. Follow up: Heart Cath at 1400 today.
--- NOTE | 2016-10-25 10:20 | NUR ---
[facility] note: 1000 Patient is in room, waiting for heart cath procedure to be done today. Patient states she is currently taking insulin at home and has been on insulin since she was in her 20's. Provided Diabetes Survival Skills Assessment form and Diabetes management booklet, encouraged to complete. Patient recalls that her last A1C done in the Clinic was 6.9 % in August 2016. Will check with patient later today to assess educational needs.
--- NOTE | 2016-10-25 14:14 | NUR ---
D:Patient left for mini lab operator per bed at 1340. went with patient. No chest pain.
--- NOTE | 2016-10-25 15:26 | NUR ---
D:Patient left for systems testing laboratory technician per bed at 1345. Patient has signed permits, denies any questions. Reports that she has had several done. P:to systems testing laboratory technician
--- NOTE | 2016-10-25 17:23 | NUR ---
D:Patient returned from laboratory apparatus glass blower. No interventions done. Perclose of right groin. Is soft, gauze and tegaderm intact. No swelling noted. No c/o pain. Nitro and Heparin off. Returned to room at 1615. P:Monitor post VS
--- NOTE | 2016-10-25 17:30 | NUR ---
Significant Event:Patient had cath, perclose to right groin. Is soft and dry, no hematoma noted. Nitro and Heparin are off. No chest pain or SOB. Did get PO KCl- 40 mEq, and Mg Ox PO. Didn't get Levimir today. Is on bedrest for 3 hours, -up at 1900. NS at 75 ml/hr for 750 ml. Graphs from CABG not in good shape, will treat medically. Follow up:Michel tomorrow
[2016-10-26 04:18] LABS: BASOPHIL % 0.4 %; EOSINOPHIL # 0.2 K/uL (0.0-0.5); EOSINOPHIL % 2.7 %; HEMATOCRIT 30.8 % (33.0-46.0); HEMOGLOBIN 9.4 g/dL (10.0-15.0); IMMATURE GRANULOCYTE % 0.5 %; LYMPHOCYTE # 3.4 K/uL (0.8-4.0); LYMPHOCYTE % 43.6 %; MCH 28.3 pg (27.0-34.0); MCHC 30.5 gm/dL (32.0-36.5); MCV 92.8 fl (83.0-98.0); MONOCYTE # 0.7 K/uL (0.0-1.0); MONOCYTE % 9.2 %; MPV 9.5 fl (9.4-12.4); NEUTROPHIL # (ANC) 3.4 K/uL (1.8-7.8); NEUTROPHIL % 43.6 %; NRBC % 0 /100WBC (0-0.00); PLATELET COUNT 263 K/uL (150-450); RBC 3.32 M/uL (3.50-5.50); RDW-CV 17.8 % (11.9-14.6); WBC 7.8 K/uL (4.0-11.0)
[2016-10-26 04:30] LABS: ANION GAP 14.1 (10.0-19.0); CALCIUM 8.5 mg/dL (8.5-10.5); POTASSIUM 4.1 mMol/L (3.7-5.1)
--- NOTE | 2016-10-26 05:15 | NUR ---
Significant Event: A/O x3. Afebrile. Denies pain. VSS on 2L. SBP 100-140s. HR 70s. Rt groin site soft, non tender. C/D/I. Cooperative with cares. Follow up: Possible d/c.
--- NOTE | 2016-10-26 10:37 | NUR ---
[facility] note: 1030 CDE stops at patient's room to assess educational needs related to Diabetes. Patient is not in the room, at this time. Patient had completed the front page of the assessment form, with no gaps identified. Primary care nurse will return form to patient when time allows and ask patient to complete the form and provide a copy to the patient. A1C 6.9 % as per patient at [facility] in August 2016. Do not anticipate any further education at this time, as per the conversation that CDE had with the patient on 10/25/16.
--- NOTE | 2016-10-26 11:59 | NUR ---
D:Patient went down for stress test at 0900. Then she returned at 1055. Patient reports feeling alittle nauseated, drank a diet Mary Jo Mist and retained. Then returned to [facility] to finish pictures for stress test at 1135.
--- NOTE | 2016-10-26 16:52 | NUR ---
Significant Event:Patient had stress test today. Results pending. Has not had any chest pain today. Accuchecks- 0700-129, 1100-255, got 4 units SSI. R groin remains soft, dressing is dry and intact. Appetite good. Coreg given late this morning d/t stress test. No complaints today. Follow up:Home tomorrow?
[2016-10-27 04:52] LABS: ANION GAP 13.2 (10.0-19.0); CALCIUM 8.3 mg/dL (8.5-10.5); CREATININE 1.2 mg/dL (0.5-1.1); POTASSIUM 4.2 mMol/L (3.7-5.1)
--- NOTE | 2016-10-27 05:20 | NUR ---
Significant Event: DENIES PAIN ALL NIGHT. UP AD CODY TO BR. REMAINS ON ROOM AIR. GROIN REMAINS SOFT WITH NO BRUISING OR DRAINAGE. Follow up:
--- NOTE | 2016-10-27 12:47 | NUR ---
at bedside. Introduced self and purpose of heart healthy education and care transitions. Calendar given, information reviewed, verbalized understanding. Has some concerns about medications costs when discharged, gave her my card and discussed the Medication Access Program. Will follow up with her by phone post discharge.
--- NOTE | 2016-10-27 16:51 | NUR ---
Significant Event: VSS AND RA. DENIES PAIN. VOIDS WITH ADEQUATE UOP. AWAITING APPROVAL FOR LIFEVEST AND PAPERWORK FILLED OUT BY DR. PLUMMER-THEY WILL COME TONITE TO FIT. CHF TEACHING WAS DONE BY LUI SARMANDO MONSON. Follow up: CONTINUE PLAN OF CARE; D/C TONITE.
--- NOTE | 2016-10-28 04:43 | NUR ---
Significant Event: A/O x3. Afebrile. Denies pain. VSS on RA. [id number]. Up ad eder. Cooperative with cares. Follow up: Life vest nurse will be here @ 0800 to give patient education. Dismissal paperwork completed. Dismissal instructions need to be given.
[2016-10-28] MEDS ORDERED: LIPITOR80 MG PO (09:03)
[2016-10-28] MEDS ORDERED: FEOSOL325 MG PO (09:06)
[2016-10-28] MEDS ORDERED: MAG-OX-400(241400 MG PO (09:10)
[2016-10-28] MEDS ORDERED: ENTRESTO 24 MG1 EACH PO (09:12)
[2016-10-28] MEDS ORDERED: SENOKOT-S TABL1 EACH PO (09:14)
[2016-10-28] MEDS ORDERED: TYLENOL EXTRA500 MG PO (09:16)
[2016-10-28] MEDS ORDERED: ULTRAM50 MG PO (09:19)
== END 2016-10-28 10:45 | disposition disaster alternative care site (69) | DRG 281 ==
LOC: GMED 05:18 → GPCU 06:46
PROVIDERS: Emergency Medicine; Internal Medicine Interventional Cardiology; ADMIT Family Medicine
PROC: 4A023N7 Measurement of Cardiac Sampling and Pressure, Left Heart, Percutaneous Approach (ICD-10-PCS; principal; 2016-10-25)
PROC: B211YZZ Fluoroscopy of Multiple Coronary Arteries using Other Contrast (ICD-10-PCS; 2016-10-25)
DX: I21.4 Non-ST elevation (NSTEMI) myocardial infarction (principal); I47.2 Ventricular tachycardia; I50.22 Chronic systolic (congestive) heart failure; E11.22 Type 2 diabetes mellitus with diabetic chronic kidney disease; E11.622 Type 2 diabetes mellitus with other skin ulcer; E66.01 Morbid (severe) obesity due to excess calories; E03.9 Hypothyroidism, unspecified; E87.6 Hypokalemia; I25.110 Atherosclerotic heart disease of native coronary artery with unstable angina pectoris; I25.5 Ischemic cardiomyopathy; E78.2 Mixed hyperlipidemia; M06.9 Rheumatoid arthritis, unspecified; G62.9 Polyneuropathy, unspecified; M19.90 Unspecified osteoarthritis, unspecified site; E11.42 Type 2 diabetes mellitus with diabetic polyneuropathy; I25.2 Old myocardial infarction; I05.0 Rheumatic mitral stenosis; Z79.82 Long term (current) use of aspirin; I12.9 Hypertensive chronic kidney disease with stage 1 through stage 4 chronic kidney disease, or unspecified chronic kidney disease; N18.9 Chronic kidney disease, unspecified; Z95.1 Presence of aortocoronary bypass graft; Z68.36 Body mass index [BMI] 36.0-36.9, adult
CPT/HCPCS: A9500; A9539; A9540; C1760; C8929; J0282; J1644; J2250; J2405; J2785; J3010; J3475; J7030; J7060; J8610; Q9957

== ENCOUNTER → 2016-10-24 | Outpatient (CLI) | payer BC ==
[~2016-10-24] MED LIST: "\\\"PREP SPRAY\\\"-TIN4 OZ"; AMARYL2 M1 PO; AMARYL2 MG PO; ASPIRIN325 MG PO; BRILINTA90 MG PO; COREG6.25 MG PO; DELTASONE20 MG PO; DELTASONE5 MG PO; DOCUSATE SODIU1 EACH PO; ENTRESTO 24 MG1 EACH PO; FEOSOL325 MG PO; FLAX OIL1000 MG PO; FLAX SEED OIL1000 MG PO; FLONASE 50 MCG/16 GM NOSE; FOLIC ACID 40400 MCG PO; FOLIC ACID0.8 MG PO; GLUCOPHAGE1000 MG PO; HUMIRA 4040 MG/0.8 SUB-Q; KEFLEX500 MG PO; LANTUS (IN100 UNIT/M SUB-Q; LASIX40 MG PO; LEVAQUIN 750 M750 MG PO; LEVOTHROID (S125 MCG PO; LIPITOR80 MG PO; LOPID600 MG PO; MAG-OX-400(241400 MG PO; METHOTREXATE2.5 MG PO; MULTIVITAMINS1 EAC1 PO; NEURONTIN300 MG PO; NITROSTAT0.4 MG SL; NOVOLIN-R100 UNIT/M SUB-Q; PLAVIX75 MG PO; PRINIVIL (ZESTRI5 MG PO; PRINIVIL OR ZES10 MG PO; RANEXA ER500 MG PO; SENOKOT-S TABL1 EACH PO; TYLENOL EXTRA500 MG PO; TYLENOL325 MG PO; ULTRAM50 MG; ULTRAM50 MG PO; WELLBUTRIN SR150 MG PO; XELJANZ XR11 MG PO; ZOCOR40 MG PO; ZYLOPRIM100 MG PO; ZYRTEC10 MG PO
== END | disposition disaster alternative care site (69) ==
LOC: GAMB 04:39
DX: I20.9 Angina pectoris, unspecified (principal); R07.9 Chest pain, unspecified; Z79.82 Long term (current) use of aspirin; Z79.899 Other long term (current) drug therapy; Z88.6 Allergy status to analgesic agent

== ENCOUNTER 2016-11-19 15:30 | Observation (INO) | payer BC ==
[~2016-11-19] VITALS: Ht 152.4 cm; Wt 110.1 kg
--- NOTE | ~2016-11-19 | ER ---
PATIENT'S NAME: ALISSA ROLON [facility] AGE: 56 Y [address] ROOM: [id number] [place], [place] [address] LOCATION: [facility] ADMIT DATE: 11/19/2016 ER/Outpatient Report DISCHARGE DATE: FAMILY PHYSICIAN: ANTHONY RUIZ MD ATTENDING PHYSICIAN: ALTAGRACIA ORTIZ ADDENDUM: This is an addendum to Dr. Flores's dictation. Please see his dictation for chief complaint, history of present illness, past medical history, past surgical history, social history, allergies, and medications. Transfer of care was made to myself. HOSPITAL COURSE: The patient is having some chest pain. She is on nitro and heparin drip. EKG showed T-wave inversions laterally. Cardiac enzymes were unremarkable. We were waiting for the patient to be transferred to the floor. It was noted that the patient had a low glucose, a repeat glucose was obtained, which was 47. The patient was given 1 amp of D50. She was minimally symptomatic with this. We did contact Dr. Cabrera to inform him of the low blood sugar, this was preformed by the nurse. The patient was transferred to upstairs under the care Dr. Cabrera and Dr. Acosta in stable condition. DO ANSELMO CORDERO/elverl /[id number] d: 11/20/16 0127 t: 11/28/16 0515, OUTPATIENT REPORT
--- NOTE | ~2016-11-19 | ER ---
[facility] 56 [facility] [address] ROOM: [id number] [place], [place] [address] LOCATION: [facility] ADMIT DATE: 11/19/2016 ER/Outpatient Report DISCHARGE DATE: FAMILY PHYSICIAN: ANTHONY RUIZ MD ATTENDING PHYSICIAN: ALTAGRACIA ORTIZ Admission date and time documented in the medical record. I saw the patient at 1545 hours. CHIEF COMPLAINT: Chest pain, external defibrillator warning x2, shortness of breath, diaphoresis, nausea. HISTORY OF PRESENT ILLNESS: This patient is a 56-year-old female, who this afternoon around 1400 hours had her external defibrillator alarm sound off. It did not shock. She rested, and about 10 minutes later, it sounded again. At that time, she developed pain in her left anterior chest and searing pain between her shoulder blades. Ambulance was dispatched. Paramedics brought the patient to the emergency room for evaluation. She did take an aspirin this morning. They did give her two nitros en route, which improved her pain from an 8 to about 4 to 5. I did start her on IV nitro drip when she got here, and it took her pain down to about 1. She was not diaphoretic on arrival here but awake and alert. She had no further alarms on her defibrillator. The patient had a non-ST elevation myocardial infarction about a month ago. She had a catheterization at that time with no intervention, just medical management. She did not feel lightheaded or dizzy. She had no syncope. She had no fall or trauma. No headache, eyes, ears, nose, throat, neck, or spine pain. No abdominal pain. No diarrhea. No urinary symptoms. No joint or muscle swelling, redness, or pain. No skin eruptions or rash. She does have insulin-dependent diabetes mellitus type 2 and hypothyroidism. No history of TIA, CVA, seizure disorder. No psych issues. HOME MEDICATIONS: See attached medication list. ALLERGIES: MORPHINE SULFATE AND CIPRO. SOCIAL HISTORY: Nonsmoker, nondrinker. SIGNIFICANT PAST MEDICAL HISTORY: Atherosclerotic ischemic heart disease with coronary artery disease, status post myocardial infarction; renal insufficiency; insulin-dependent diabetes PATIENT'S NAME: GONZALES [facility] AGE: 56 Y [address] ROOM: [id number] [place], [place] [address] LOCATION: [facility] ADMIT DATE: 11/19/2016 ER/Outpatient Report DISCHARGE DATE: FAMILY PHYSICIAN: ANTHONY RUIZ MD ATTENDING PHYSICIAN: ALTAGRACIA ORTIZ mellitus type 2; hypothyroidism; dyslipidemia; rheumatoid arthritis; systemic congestive heart failure; exogenous obesity; hypertension; immunosuppression; degenerative osteoarthritis with degenerative joint disease; peripheral neuropathy; cervical spinal stenosis; valvular heart disease with mitral replacement. OPERATIONS: , foot surgery, neck surgery, three-vessel coronary bypass graft, cardiac catheterization with PTCA and stenting, laser heart surgery. REVIEW OF SYSTEMS: All systems reviewed by me are negative with the exception of those discussed in the history of present illness. PHYSICAL EXAMINATION: HEAD: Normocephalic. EYES EARS, NOSE, AND THROAT: Clear. NECK: No nuchal rigidity. No thyromegaly or cervical adenopathy. No carotid bruits. No tenderness. SPINE: Nontender. No deformity. LUNGS: Clear. No rales, rhonchi, or wheezes. HEART: Regular. Pulses are palpable. No chest wall pain to palpation. No deformity. ABDOMEN: Obese, soft, nondistended, nontender. Good bowel tones. No organomegaly or abnormal mass palpable. EXTREMITIES: Without peripheral edema, cyanosis, or deformity. NEUROVASCULAR: Intact. SKIN: Clear. LABORATORY DATA AND X-RAYS: EKG showed sinus rhythm. Some anterolateral ischemic changes with no acute ST elevation. Chest x-ray showed cardiomegaly, congestive failure, no infiltrate. We will review x-ray with the radiologist. Laboratory: White count is 8700, 65 segs, 26 lymphs, 5 monos, 3 eos, 1 baso, hemoglobin is 10.3 with hematocrit 32.9, platelet count is 406,000. PTT was 28. Pro-time was 10.4 with an INR 0.99. CMS was normal except for low glucose of 57, elevated creatinine 1.2, low GFR of 47. Magnesium 2.1. CPK was 52. [id number] cardiac enzymes were normal. ProBNP was elevated 1320. D- dimer was 0.78. EMERGENCY DEPARTMENT COURSE: Again, I did start the patient on IV nitro drip. Did give the patient 4 baby aspirin. Started the patient on heparin per cardiac protocol. Did discuss the patient with Dr. Acosta, registered nurse obstetrics, for Dr. Linares. PATIENT'S NAME: ALISSA ROLON [facility] AGE: 56 Y [address] ROOM: [id number] [place], [place] [address] LOCATION: [facility] ADMIT DATE: 11/19/2016 ER/Outpatient Report DISCHARGE DATE: FAMILY PHYSICIAN: ANTHONY RUIZ MD ATTENDING PHYSICIAN: ALTAGRACIA ORTIZ IMPRESSION: 1. Chest pain, unstable angina. The patient was started on IV nitroglycerin drip and IV heparin per cardiac protocol and given 4 baby aspirin. The patient does have a history of atherosclerotic ischemic heart disease with coronary artery disease. She has had a previous valvular heart disease with mitral valve replacement and a three-vessel coronary bypass graft, along with cardiac catheterizations with stenting. 2. Insulin-dependent diabetes mellitus type 2. 3. Renal insufficiency. 4. Hypothyroidism. 5. Dyslipidemia. 6. Chronic systolic congestive heart failure. 7. Hypertension. PLAN: We will admit the patient to the hospital for further evaluation. Discussion ensued with the patient concerning my findings and recommendations, she understands. I did speak with Dr. Cabrera in regard to this patient so that [facility] is aware of this patient. Accumulated critical care time 30 minutes. MD NAN RIOS/modl /[id number] d: 11/19/162146 t: 11/20/16 1837, OUTPATIENT REPORT
--- NOTE | ~2016-11-19 | CON ---
PATIENT'S NAME: ALISSA IVAN [facility] AGE: 56 Y [address] ROOM: [id number] [place], [place] [address] LOCATION: GICU ADMIT DATE: 11/19/2016 Consultation DISCHARGE DATE: FAMILY PHYSICIAN: ANTHONY RUIZ MD ATTENDING PHYSICIAN: LEANN ORTIZ ADMITTING PROVIDER: Nba Cabrera MD. CONSULTING PHYSICIAN: Leann Ortiz MD for Dr. Linares ([employer]). CHIEF COMPLAINT: Chest pain. HISTORY OF PRESENTING ILLNESS: Mrs. Ivan is a very pleasant 56-year-old female who has history of coronary artery disease, status post CABG in 1999 and redo CABG in 2008 and also history of mitral valve repair. In August of 2015, she had a PCI of the LAD in the setting of acute coronary syndrome. She also had an episode of acute coronary syndrome in October of 2016 where she underwent another cardiac cath. Her SVG to OM and sequential graft to diagonal were patent. The left main fed the LAD and the stent was patent. RCA was not imaged, however, it was a small nondominant vessel, that was imaged during the initial cath done by Dr. Linares in 2015. The graft to the right is occluded. The BERMAN is atretic and does not feed the LAD. She has ischemic cardiomyopathy. Her EF in the past was reported 40-45%, in the latest echocardiogram that was read by Dr. Vargas and was reported to be 30% in October of 2016. She also had a nuclear stress test with small-sized mild reversible defect in the basal inferior and anterior aaron. After the cath, there was really no target for revascularization and medical therapy was recommended. The patient has had chest pain about 6 times since her discharge in October. She also reports she is not taking Entresto because she cannot afford it. Today, she reports her ICD was activated, however, she terminated and the device did not shock her; this episode happened twice, once while she was getting her clothes out into the curtain drier and the 2nd time she reports she was getting up to go and have a shower. She did report chest pain at that time and pressure that was similar to the episode she had in October. She took 2 sublingual nitroglycerins and that did not help it. Once she came into the ER, she got 2 more and that resolved the most of her pain. She was also started on a nitroglycerin drip and that alleviated her pain to 1-2 on pain scale. The ER physician called me. The patient did not have any ST PATIENT'S NAME: ALISSA IVAN [facility] AGE: 56 Y [address] ROOM: [place] [address] LOCATION: GICU ADMIT DATE: 11/19/2016 Consultation DISCHARGE DATE: FAMILY PHYSICIAN: ANTHONY RUIZ MD ATTENDING PHYSICIAN: LEANN ORTIZ and she had some mild ST changes in leads I and aVL that are old. Her chest pain was minimal at that time, and the patient was quite comfortable and hemodynamically stable. I asked him to start heparin drip and admit to the Hospitalist Team and we will see her in consultation. During interview, the patient was essentially chest pain-free. No fever, chills, nausea, vomiting, diarrhea, stroke-like symptoms, or changes in her strength or sensation. REVIEW OF SYSTEMS: 10-point review of systems discussed with the patient and pertinent positives and negatives mentioned in the history of presenting illness. PAST MEDICAL HISTORY: 1. CAD. 2. Ischemic cardiomyopathy, NYHA class 2. 3. Essential hypertension. 4. Diabetes mellitus type 2, insulin dependent. 5. Hypothyroidism. 6. Immunosuppressed status. 7. Neuropathy. 8. Osteoarthritis. 9. Rheumatoid arthritis. 10. Dyslipidemia. 11. Depression. PAST SURGICAL HISTORY: in 1984, ACL repair, CABG in 1999 and redo with valve mitral valve repair in 2008, and back surgery in 2013. FAMILY HISTORY: Positive for premature coronary artery disease in her father who had cardiovascular disease in his late 40s. She also has several other family members with premature coronary artery disease. SOCIAL HISTORY: The patient is . Does not smoke. No alcohol or illicit drug abuse. ALLERGIES: SULFA AND CIPRO. CARDIAC MEDICATIONS: 1. Aspirin 81 daily. 2. Coreg 6.25 mg p.o. b.i.d. 3. Plavix 75 daily. 4. Lasix 40 daily. [facility]GE: 56 Y [address] ROOM: [place] [address] LOCATION: [facility] ADMIT DATE: 11/19/2016 Consultation DISCHARGE DATE: FAMILY PHYSICIAN: ANTHONY RUIZ MD ATTENDING PHYSICIAN: LEANN ORTIZ 5. Entresto 24/26 mg p.o. b.i.d. 6. Lipitor 80 daily. PHYSICAL EXAMINATION: VITAL SIGNS: Blood pressure 120/60, heart rate 70s, afebrile, respirations 14, and O2 at 99% on 2 L. Weight is about 240 pounds. Height is 5 feet 8 inches. SKIN: Warm and dry. HEENT: Sclerae white. No xanthelasmas. Head, atraumatic. NECK: Soft and supple. CARDIOVASCULAR: S1, S2. Regular rate and rhythm. No murmurs, gallops, or rubs. LUNGS: Clear to auscultation bilaterally. No wheezing or crackles. ABDOMEN: Obese, soft. Bowel sounds positive. EXTREMITIES: No significant lower extremity edema. NEURO: Able to move all extremities against gravity. The patient is alert and oriented x3, in no apparent distress. LABORATORY DATA: Sodium 141, potassium 4.1, chloride 103, CO2 30, glucose 57, BUN 18, and creatinine 1.2. AST 14, ALT 21, alkaline phosphatase 78, GFR 47, cholesterol 204, and HDL 35. CPK 52, CK-MB 1, and troponin less than 0.04. ProBNP 1320, last admission it was 1396. WBC 8.7, H and H 10.3/32.9, and platelets are 406. DIAGNOSTIC DATA: EKG: Normal sinus rhythm, ST depressions in I and aVL, likely secondary to LVH, those are chronic. Chest x-ray: Cardiac enlargement with mild vascular congestion. Echocardiogram: LVEF about 30%, moderate mitral valve stenosis with mean gradient of 9, trivial MR. Cardiac cath in october of 2016: SVG to PDA 100%, stent to mid LAD done in 2016 is patent, RCA is codominant. Medical management was recommended after the cardiac cath. ASSESSMENT AND PLAN: 1. Crescendo angina in the patient with known coronary artery disease, status post coronary artery bypass graft and redo coronary artery bypass graft in 2008. 2. History of mitral valve repair in 2008. 3. History of ventricular tachycardia in the setting of hypomagnesemia in the past and required admission in October of 2015. PATIENT'S NAME: ALISSA IVAN [facility] AGE: 56 Y [address] ROOM: [id number] [place], [place] [address] LOCATION: [facility] ADMIT DATE: 11/19/2016 Consultation DISCHARGE DATE: FAMILY PHYSICIAN: ANTHONY RUIZ MD ATTENDING PHYSICIAN: LEANN ORTIZ 4. Ischemic cardiomyopathy with [place] Heart Association class 2. Left ventricular ejection fraction 30% on last echocardiogram done by Dr. Vargas. PLAN: At this time, we will get the patient admitted to Telemetry, evaluate for any possible arrhythmias. I have contacted the LifeVest rep to see if there is any evidence of ventricular arrhythmias that indeed was the reason for her LifeVest being activated; however, no discharges, no loss of consciousness this admission with both episodes of LifeVest activation. We will check her magnesium and ensure it is stable. Start nitroglycerin drip and heparin drip and trend serial isoenzymes. I do not think she needs to go back again to the Catheterization Lab. She has had a stress test with mild ischemia as well as really no target for any revascularization based on the last cath just 3 weeks ago. Unless she has elevated enzymes or new ischemic changes on ECG, we will then consider taking her to the [facility]. If she rules out [place], we will just go ahead and optimize her medications. Thank you very much for allowing us to participate in the care of Mrs. Ivan. LEANN ORTIZ MD AT/modl /[id number] CC: Jasper Linares MD d: 11/19/16 2319 t: 11/24/16 180, CONSULTATION REPORT
--- NOTE | ~2016-11-19 | ECHO ---
Transthoracic Echocardiography Report (TTE) Demographics Patient Name ALISSA ROLON Date of Study 11/21/2016 Patient Number [id number] Visit Number [id number] Date of 1960 Room Number G6307 Accession Number [id number] Gender Female Age 56 year(s) Referring Deborah Lee Evp Strategy Danisha Samuels Physician Shiv Murillo MD [facility] Lou Avina Physician Interpreting Vijay Hutchinson MD [employer] Consultant Physician Supervising Ordering Physician Deborah Lee MD/MLP Nurse Stress Professor Of Forestry Conclusions Contractility Score Summary At rest the following contractility abnormalities were noted: Hypokinesis of the Mid hilary-lateral, the Mid anterior, the Mid hilary-septal, the Mid infero-septal, the Mid inferior, the Mid infero-lateral, the Basal infero-lateral, the Apical inferior, the Basal hilary-septal, the Basal infero-septal, the Apical lateral, the Basal anterior, the Basal inferior and the Basal hilary-lateral segments; Akinesis of the Apical septal, the Apical anterior and the Apical cap segments. Summary Technically difficult exam. Definity was administered to better delineate endocardial borders. The estimated left ventricular ejection fraction is 30%. The left ventricle is moderately dilated . Mild concentric left ventricular hypertrophy. Diastolic assessment reveals Grade I diastolic dysfunction. Mildly dilated right ventricle. Mild to moderately reduced right ventricular function. The left atrium is moderately dilated. The mitral valve has been surgically repaired. Moderate mitral valve stenosis. The mean gradient is 6 mmHg. Procedure Type of Study TTE procedure:2D Echocardiogram, M-Mode, Doppler , Color Doppler, Contrast study, Echo with Contrast. Procedure Date Date: 11/21/2016 Start: 06:45 AM Study Location: Inpatient Portable Technical Quality: Limited visualization due to body habitus. Indications:Re-evaluate LV systolic function and History of mitral valve repair. Additional Indications:Wall motion Appropriate Use Criteria: 9 Patient Status: STAT Contrast Medium: Definity. Amount - 2 ml HR: 83 bpm BP: 116/55 mmHg Allergies - Morphine. - Morphine. - Other:(ciprofloxacin). M-Mode/2D Measurements LV Diastolic Dimension: 6.14 cm LV Systolic Dimension: 5.13 cm LV Septum Diastolic: 1.33 cm LV PW Diastolic: 1.33 cm AO Root Dimension: 2.7 cm Cardiac Output: 4.67 l/min AV Cusp Separation: 1.9 cm RV Diastolic Dimension: 3.17 cm LA volume: 92 ml LVOT: 2 cm RV Base: 4.01 cm LVOT VTI: 17.9 cm RV Mid: 3.97 cm LV Stroke volume: 56.21 ml TAPSE: 1.46 cm TDI-S': 8.55 cm/s Doppler Measurements AV Peak Velocity: 1.31 m/s MV Peak E-Wave: 1.42 m/s AV Peak Gradient: 6.86 mmHg MV Peak A-Wave: 1.63 m/s AV Mean Gradient: 4 mmHg MV E/A Ratio: 0.87 LVOT Peak Velocity: 1.01 m/s MV P1/2t: 85 msec MV Deceleration Time: 264 msec E' Septal Velocity: 0.04 m/s PV Peak Velocity: 1.17 m/s E' Lateral Velocity: 0.05 m/s PV Peak Gradient: 5.48 mmHg A' Septal Velocity: 0.05 m/s Findings Left Ventricle The left ventricle is moderately dilated . Mild concentric left ventricular hypertrophy. Diastolic assessment reveals Grade I diastolic dysfunction. Right Ventricle Mildly dilated right ventricle. Mild to moderately reduced right ventricular function. Left Atrium The left atrium is mildly dilated. Right Atrium Normal right atrial size. Unable to visualize IVC due to poor subcostal window. Mitral Valve The mitral valve has been surgically repaired. Moderate mitral valve stenosis. The mean gradient is 6 mmHg. Trivial mitral regurgitation by color Doppler. Aortic Valve Normal aortic valve structure and function. Tricuspid Valve Normal tricuspid valve structure and function. No tricuspid regurgitation by color Doppler. Pulmonic Valve The pulmonic valve is not well visualized. Pericardial Effusion No evidence of pericardial effusion. Miscellaneous Visualized portions of the aortic root and ascending aorta appear normal in size. Pleural Effusion No evidence of pleural effusion. Contractility Score LV regional wall motion:(0-Non visualized 1-Normal 2-Hypokinesis 3-Akinesis 4-Dyskinesis 5-Aneurysm) Signature dtt: Jasper Linares (cardio) dtd: 11/21/16 0645 Physician Self Edit
[~2016-11-19 15:30] MED LIST changes: +DELTASONE5 MG PO; +DOCUSATE SODIU1 EACH PO; +ENTRESTO 24 MG1 EACH PO; +FEOSOL325 MG PO; +LIPITOR80 MG PO; +MAG-OX-400(241400 MG PO; +SENOKOT-S TABL1 EACH PO; +TYLENOL EXTRA500 MG PO; +ULTRAM50 MG PO
[2016-11-19 16:22] LABS: BASOPHIL % 0.5 %; EOSINOPHIL # 0.2 K/uL (0.0-0.5); EOSINOPHIL % 2.7 %; HEMATOCRIT 32.9 % (33.0-46.0); HEMOGLOBIN 10.3 g/dL (10.0-15.0); IMMATURE GRANULOCYTE # 0.1 K/uL (0.0-0.3); IMMATURE GRANULOCYTE % 0.8 %; LYMPHOCYTE # 2.2 K/uL (0.8-4.0); LYMPHOCYTE % 25.6 %; MCH 28.5 pg (27.0-34.0); MCHC 31.3 gm/dL (32.0-36.5); MCV 91.1 fl (83.0-98.0); MONOCYTE # 0.4 K/uL (0.0-1.0); MONOCYTE % 5.1 %; MPV 9.4 fl (9.4-12.4); NEUTROPHIL # (ANC) 5.7 K/uL (1.8-7.8); NEUTROPHIL % 65.3 %; NRBC % 0 /100WBC (0-0.00); RBC 3.61 M/uL (3.50-5.50); RDW-CV 18.3 % (11.9-14.6); WBC 8.7 K/uL (4.0-11.0)
[2016-11-19 16:23] LABS: PLATELET COUNT 406 K/uL (150-450)
[2016-11-19 16:38] LABS: INR - (THERAPEUTIC) 0.99 (0.92-1.07); PROTIME 10.4 SECONDS (9.8-11.4); PTT 28 SECONDS (25-32)
[2016-11-19 16:48] LABS: ALBUMIN 2.8 gm/dL (3.5-5.0); ALK PHOS 78 IU/L (33-138); ALT 21 IU/L (12-78); ANION GAP 12.1 (10.0-19.0); AST 14 IU/L (10-40); BLOOD UREA NITROGEN 18 mg/dL (6-24); CALCIUM 8.8 mg/dL (8.5-10.5); CHLORIDE 103 mMol/L (96-110); CO2 30 mMol/L (22-32); CPK 52 IU/L (21-215); CREATININE 1.2 mg/dL (0.5-1.1); ESTIMATED GFR (MDRD EQUATION) 47; MAGNESIUM 2.1 mg/dL (1.8-2.6); POTASSIUM 4.1 mMol/L (3.7-5.1); SODIUM 141 mMol/L (135-145); TOTAL PROTEIN 7.1 g/dL (6.0-8.4)
[2016-11-19 16:49] LABS: TOTAL BILIRUBIN 0.5 mg/dL (0.0-1.5)
[2016-11-19 18:40] LABS: CPK 52 IU/L (21-215)
[2016-11-19 23:52] LABS: CPK 55 IU/L (21-215)
[2016-11-20 06:27] LABS: CPK 45 IU/L (21-215)
[2016-11-20 11:58] LABS: CPK 58 IU/L (21-215)
[2016-11-20] MEDS ORDERED: FLONASE 50 MCG/16 GM NOSE (12:25)
[2016-11-21 08:44] LABS: ALBUMIN 2.8 gm/dL (3.5-5.0); ANION GAP 12.9 (10.0-19.0); CALCIUM 8.5 mg/dL (8.5-10.5); CREATININE 1.1 mg/dL (0.5-1.1); MAGNESIUM 1.9 mg/dL (1.8-2.6); PHOSPHORUS 2.8 mg/dL (2.5-4.9); POTASSIUM 3.9 mMol/L (3.7-5.1)
[2016-11-21] MEDS ORDERED: RANEXA ER500 MG PO (16:33)
== END 2016-11-21 17:00 | disposition disaster alternative care site (69) ==
LOC: GMED 15:30 → GICU 18:01 → GPCU 18:01 → GICU 18:01 → GPCU 11-20 18:38
PROVIDERS: Emergency Medicine; Internal Medicine Interventional Cardiology; ADMIT Internal Medicine Interventional Cardiology
DX: I25.110 Atherosclerotic heart disease of native coronary artery with unstable angina pectoris (principal); I11.0 Hypertensive heart disease with heart failure; I50.22 Chronic systolic (congestive) heart failure; I25.2 Old myocardial infarction; I25.5 Ischemic cardiomyopathy; I38 Endocarditis, valve unspecified; E03.9 Hypothyroidism, unspecified; E11.9 Type 2 diabetes mellitus without complications; E78.5 Hyperlipidemia, unspecified; M19.90 Unspecified osteoarthritis, unspecified site; M48.02 Spinal stenosis, cervical region; G62.9 Polyneuropathy, unspecified; E66.09 Other obesity due to excess calories; Z68.36 Body mass index [BMI] 36.0-36.9, adult; Z88.1 Allergy status to other antibiotic agents; Z88.8 Allergy status to other drugs, medicaments and biological substances; Z98.890 Other specified postprocedural states; Z79.82 Long term (current) use of aspirin; Z79.899 Other long term (current) drug therapy
CPT/HCPCS: C8929; G0378; J1644; J7030; Q9957

== ENCOUNTER 2017-01-29 12:56 | Inpatient (IN) | payer BC ==
[~2017-01-29] VITALS: Ht 172.7 cm; Wt 111.6 kg
--- NOTE | ~2017-01-29 | ER ---
[facility] 56 Y [address] ROOM: [place] [address] LOCATION: GPCU ADMIT DATE: 01/29/2017 ER/Outpatient Report DISCHARGE DATE: FAMILY PHYSICIAN: ANTHONY CHANEY MD ATTENDING PHYSICIAN: EZRA BAH Time of Arrival: 1300 hours. Time of Exam: 1300 hours. CHIEF COMPLAINT: Weakness. HISTORY OF PRESENT ILLNESS: The patient arrived per [facility] with IV present in the right hand. Blood glucose at home was 93. The patient states this morning, she just began feeling very weak. She states that all of her joints hurt. She has a history of rheumatoid arthritis, and really feels as though it has flared up. She reports that she had to call the ambulance because she could not get off the toilet. She was so weak and her knees hurt so bad. She denies having any chest pain, has not felt short of breath. She has not had a cough, cold, congestion, or runny nose; has not been nauseated. No vomiting. Just extremely painful in all of her joints. ALLERGIES: CIPRO CAUSES RASH. MORPHINE CAUSES ANAPHYLAXIS. CURRENT MEDICATIONS: On her chart and reviewed by me. PAST MEDICAL HISTORY: Coronary artery disease, vra-ceysuyj-pcbeuedpt diabetes, hypertension, hypothyroidism, osteoarthritis rheumatoid arthritis, mitral valve disorder, dyslipidemia, obesity. PAST SURGICAL HISTORY: Coronary artery bypass graft in 1999 and 2008, , heart valve repair, heart catheterization done in 2016, ACL repair. SOCIAL HISTORY: She lives in [place] with her . Denies use of tobacco, drugs, or alcohol. She states Dr. Chaney is her primary provider. PHYSICAL EXAMINATION: VITAL SIGNS: Weight 112 kg, blood pressure is 156/70, pulse of 92, respirations 20, temperature of 98.9, O2 saturation was 95% on room air. PATIENT'S NAME: GONZALES [facility] AGE: 56 Y [address] ROOM: [place] [address] LOCATION: GPCU ADMIT DATE: 01/29/2017 ER/Outpatient Report DISCHARGE DATE: FAMILY PHYSICIAN: ANTHONY CHANEY MD ATTENDING PHYSICIAN: EZRA BAH GENERAL: She is awake, alert, and oriented x4. SKIN: [place], warm, and dry. RESPIRATIONS: Even and nonlabored. LUNGS: Lung sounds were clear throughout. HEART: Regular rate and rhythm. ABDOMEN: Soft and nondistended. Bowel sounds are present. She has strong peripheral pulses. She has some mild pedal edema, some redness of the left great toe and swelling of the left hand. She is painful to move her knees, has a lot of pain with range of motion. LABORATORY DATA AND X-RAYS: Lab work was drawn. CBC shows a white count of 16.3, hemoglobin is 10.1 with hematocrit of 31.3. Her sedimentation rate is 119. Chem Panel: Sodium is 138, potassium is 4.5, and chloride is 105. BUN is 19 with a creatinine of 0.8. CPK is 36, CK-MB is 0.6, and troponin is negative. Her CRP is 13.8. Lactate was 1, procalcitonin is 0.07. Cath UA was obtained, it is positive for leukocytes, nitrites, and blood. Micro shows 20 to 50 white blood cells and many bacteria. EKG was completed. No acute abnormality is seen. The patient was given fentanyl 50 mcg IV for pain. Her O2 sats did drop less than 90, after that was given, she was put on 2 L of nasal cannula oxygen. Her sats did rebound quickly and the oxygen was shut off. Her vital signs remained stable. I did contact Dr. Vale Toure who is on-call for Dr. Chaney. She did review the patient's chart from the clinic and would like to have the patient hospitalized per hospitalist. I did call and talk with Dr. Bah. IMPRESSION: 1. Urinary tract infection. 2. Weakness. PLAN: The patient will be placed in outpatient status for care of the hospitalist. We did repeat the fentanyl for her pain and gave her Levaquin 750 mg IV. She has had a liter of fluids here in the ER. YUAN GRECO APRN FOR MD MIKEL STRINGER/zina /[id number] d: 01/30/17 0045 t: 02/01/17 1208, OUTPATIENT REPORT
--- NOTE | ~2017-01-29 | CON ---
[facility] 56 Y [address] ROOM: [place] [address] LOCATION: GPCU ADMIT DATE: 01/29/2017 Consultation DISCHARGE DATE: FAMILY PHYSICIAN: ANTHONY RUIZ MD ATTENDING PHYSICIAN: EZRA BAH REFERRING PHYSICIAN: Scott Eisenberg MD CHIEF COMPLAINT: Rheumatoid arthritis with acute flare involving both knees, left shoulder, left elbow, both wrists, and her feet. HISTORY: This 56-year-old female has a 5-year history of rheumatoid arthritis. She has flares occasionally. She had a minor one about a month ago. She saw Dr. Alvarez this last Sunday 3 days ago and he gave her a shot of some type of steroids, she is not sure what it was. The next day, Sunday, she started having more pain in her knees with swelling in the right knee, pain in her feet, in left elbow, and both wrists. He also injected her left wrist, but that does not seemed to have helped very much. She has had no fevers. She was at home doing very poorly with so much pain, she could hardly move today. So, they called the ambulance from [place], brought her to the [facility] and she was admitted for severe pain control and acute rheumatoid arthritis flare. There has been no injuries, no fevers. She can hardly walk. She can hardly move her knees and her left upper extremity because of her wrist and elbow pain. ALLERGIES: MORPHINE. MEDICATIONS: 1. NovoLog insulin. 2. Ultram. 3. Dilaudid. 4. Glucagon. 5. Indocin. 6. [place]. 7. Sublimaze. 8. Tylenol. 9. Levaquin. MEDICAL HISTORY: 1. Hypertension. 2. Diabetes mellitus. 3. Coronary artery disease. 4. Rheumatoid arthritis. PATIENT'S NAME: GONZALES [facility] AGE: 56 Y [address] ROOM: [place] [address] LOCATION: GPCU ADMIT DATE: 01/29/2017 Consultation DISCHARGE DATE: FAMILY PHYSICIAN: ANTHONY RUIZ MD ATTENDING PHYSICIAN: EZRA BAH SURGICAL HISTORY: She has had a , heart valve replacement, multi-vessel bypass. No orthopedic procedures on the lower extremities. SOCIAL HISTORY: She lives with her in [place]. No smoking or alcohol use. She is disabled. FAMILY HISTORY: Positive for heart disease. REVIEW OF SYSTEMS: No coughs, colds, fevers, chills, or sore throats. She has gained weight and has generalized malaise and diffuse pain. No dysuria or hematuria. No hesitancy or incontinence. No nausea or vomiting. No auditory or visual hallucinations. No skin changes or rashes. PHYSICAL EXAMINATION: GENERAL: She is awake, alert, obese female. She is in distress from the multiple joint pains. VITAL SIGNS: Her weight is 112 kg, pulse 92, respirations 18, temperature 98.9, blood pressure 156/70, O2 saturations are 95% on room air. HEENT: Atraumatic and normocephalic. PERRL. EOMI. TMs clear. Throat clear. NECK: Supple. CHEST: Clear to auscultation. HEART: Regular rhythm. ABDOMEN: Morbidly obese. NEUROLOGIC: She is intact. Sensation and motor function intact in lower extremities. EXTREMITIES: Her right knee has 4+ effusion, it is warm. Range of motion is 10-100 degrees with flexion. Left knee has no effusion, but is tender and slightly warm. Range is 0-120 degrees flexion. Left elbow has swelling, slight warmth, and tenderness. Both wrists have slight swelling and warmth, pain with motion, and limited motion. Her neck moves well. Spurling sign is negative. She cannot walk because the pain is so severe. LAB VALUES: Hemoglobin is 10.1, white count 16.3. Her BUN is 19, creatinine 9.8. Sodium 138, potassium 4.5. INR is 0.97. DATA: Sedimentation rate is 120. IMPRESSION: PATIENT'S NAME: ALISSA ROLON [facility] AGE: 56 Y [address] ROOM: [place] [address] LOCATION: [facility] ADMIT DATE: 01/29/2017 Consultation DISCHARGE DATE: FAMILY PHYSICIAN: ANTHONY RUIZ MD ATTENDING PHYSICIAN: EZRA BAH 1. Acute flare of rheumatoid arthritis with multiple joint involvement including her wrist and left elbow, both knees and feet, the right knee is most severe with a tense effusion. Consider the possibility of septic arthritis. 2. Diabetes mellitus type 1. Glucose is 82. 3. Morbid obesity. 4. Hypertension. 5. Coronary artery disease, status post stenting, status post valve replacement. PLAN: Risks and benefits were discussed. The right knee was sterilely prepped and aspirated from a lateral approach for 15 mL of cloudy fluid. This will be sent for culture and sensitivity. Gram stain, crystal stain, white cell count with diff. Her overall appearance is not one of septic arthritis, but rather rheumatoid arthritis. If her cultures are negative in the morning, we will inject both knees with Depo-Medrol and lidocaine for acute relief from her pain. Discussed details of the procedures and the treatment plan with the patient and Dr. Bah. They understand and desire to proceed as planned. MD DAPHNE SCHROEDER/zina /[id number] d: 01/30/17 0142 t: 02/07/17 1128, CONSULTATION REPORT
--- NOTE | ~2017-01-29 | CON ---
[facility]GE[facility] 56 Y [address] ROOM: [facility] [place] [address] LOCATION: GPCU ADMIT DATE: 01/29/2017 Consultation DISCHARGE DATE: 02/01/2017 FAMILY PHYSICIAN: Derrell Chaney MD ATTENDING PHYSICIAN: Jeff Tucker REFERRING PHYSICIAN: Scott Eisenberg MD REFERRING PHYSICIAN: Derrell Chaney MD. HISTORY OF PRESENT ILLNESS: This is a 56-year-old female who was admitted to the hospital with inability to get up and increased swelling. She saw Dr. Alvarez and had injections into multiple joints. The next couple of days she was having trouble maneuvering and getting out of bed, and therefore, she was admitted to the hospital. She was seen in the clinic on 01/23/2017 for followup after wearing a LifeVest. She had a repeat echocardiogram that showed an improved ejection fraction of 40%. Her LifeVest was discontinued at that time and a 2-day Zio patch was placed and the results are still pending. She has not really had any problems with new shortness of breath. She does feel more swollen and bloated. She denies orthopnea. She denies palpitations currently. She has had a rare palpitation on occasion. There is no report of presyncope or syncopal episodes and no exertional chest pain. PAST MEDICAL HISTORY: 1. Coronary artery disease with CABG and myocardial infarction and stents. 2. Chronic ischemic cardiomyopathy, last known EF 40%, [place] functional class II-III. 3. Essential hypertension. 4. Diabetes mellitus type 2. 5. Hypothyroidism. 6. Immunosuppressed status. 7. Neuropathy. 8. Osteoarthritis and rheumatoid arthritis. PAST SURGICAL HISTORY: 1. , 1984. 2. ACL repair in 2008. 3. CABG in 1999. 4. CABG with valve repair in 2008. 5. Left heart catheterization in 2008. 6. Spinal surgery, 2013. 7. Left heart catheterization, [facility], 08/09/2015. ALLERGIES: TO MORPHINE WHICH CAUSES SWELLING. [facility]: [facility] 56 Y [address] ROOM: [facility] [place], [place] [address] LOCATION: GPCU ADMIT DATE: 01/29/2017 Consultation DISCHARGE DATE: 02/01/2017 FAMILY PHYSICIAN: Derrell Chaney MD ATTENDING PHYSICIAN: Jfef Tucker MEDICATIONS: 1. Aspirin 325 mg once a day. 2. Atorvastatin 80 mg once a day. 3. Cetirizine HCl 10 mg once a day. 4. Coreg 6.25 mg b.i.d. 5. Ferrous sulfate 325 mg one every day. 6. Fluticasone propionate 50 mcg actuation suspension 1 each nostril b.i.d. 7. Gabapentin 300 mg one capsule 3 times a day. 8. Glimepiride 2 mg 1 tablet at breakfast, 2 in the evening. 9. Lantus 80 units daily. 10. Lasix 40 mg daily. 11. Levothyroxine 125 mcg daily. 12. Magnesium oxide 400 mg 1 tablet once a day. 13. Metformin 1000 mg one tablet twice a day. 14. Methotrexate 2.5 mg 8 tablets once a week. 15. Multivitamin daily. 16. Novolin R per sliding scale. 17. Plavix 75 mg daily. 18. Prednisone 5 mg p.r.n. 19. Ranexa 500 mg every 12 hours. 20. Senokot 8.6/50 mg one tablet orally once a day. 21. Tramadol 50 mg every 6 hours. 22. Tylenol Extra Strength 500 mg 2 tablets every 6 hours. 23. Wellbutrin 150 mg every 12 hours. 24. Xeljanz XR 11 mg daily. FAMILY HISTORY: Father is at age 50. He had pancreatic cancer, cardiovascular disease, diabetes mellitus type 2. Mother at the age of 78 of ovarian- uterine cancer. She had coronary artery disease and congestive heart failure. She has a brother who is alive and well, a second brother who had CABG at the age of 40 with a redo CABG later. Another brother with throat cancer. A sister with an OR at age 44. Second sister with an OR at the age of 50 and a third sister who of an aneurysm at the age of 42. Fourth sister of uterine cancer. She also had coronary artery disease and was on dialysis. SOCIAL HISTORY: She is . She has 1 daughter. She is a nonsmoker. Does not use alcohol. REVIEW OF SYSTEMS: GENERAL: She is complaining of being very tired. No fevers, chills, or sweats. HEAD: No history of headache. PATIENT'S NAME: ALISSA ROLON [facility] AGE: 56 Y [address] ROOM: [id number] [place], [place] [address] LOCATION: GPCU ADMIT DATE: 01/29/2017 Consultation DISCHARGE DATE: 02/01/2017 FAMILY PHYSICIAN: Derrell Chaney MD ATTENDING PHYSICIAN: Jeff Tucker EYES: No blurred vision or double vision. EARS: No problems with hearing. NOSE: No epistaxis or rhinorrhea. MOUTH: No gingival bleeding. THROAT: Denies sore throat, hoarseness, or difficulty swallowing. PULMONARY: Denies cough, hemoptysis, or sputum production. GASTROINTESTINAL: Negative for nausea, vomiting, or diarrhea. GENITOURINARY: She is now positive for urinary tract infection. ENDOCRINE: She has diabetes mellitus. NEUROLOGIC: No complaints of numbness or tingling. DERMATOLOGIC: No skin, hair, or nail changes that are concerning. MUSCULOSKELETAL: She has rheumatoid arthritis. PHYSICAL EXAMINATION: VITAL SIGNS: Blood pressure was 158/73, heart rate was 102, temperature is 99.3, O2 is 95% on room air. GENERAL: She is alert, answers questions appropriately. She appears to be very fatigued. HEENT: Pupils were equal, round, and react briskly to light. EOMs are intact. NECK: Soft and supple. Neck is thick, but JVD was flat. No carotid bruits were noted. CV: Regular with normal S1 and S2 without murmur, rub, or click. LUNGS: Lung sounds were clear to auscultation anteriorly and posteriorly. GASTROINTESTINAL: Abdomen is soft. Bowel sounds are present. EXTREMITIES: Show trace to 1+ peripheral edema. Distal pulses are 1+. NEUROLOGIC: She is alert and oriented, very pleasant. SKIN: No lesions noted. LABORATORY DATA: Troponin is negative. The white count initially was 16.3, hemoglobin 10.1, platelets are 318. BUN of 19, creatinine 0.8, sodium 138, potassium 4.5. Magnesium was 2.3. ESR was greater than 120. ASSESSMENT: 1. General edema. Her ejection fraction is improved from last visit. Would recommend continuing with current medications. 2. Urinary tract infection. She is on antibiotics. The assessment and plan, history of present illness, and physical exam are per Dr. Fajardo. We would like to thank Dr. Chaney for allowing us to participate in the patient's care. PATIENT'S NAME: ALISSA ROLON [facility] AGE: 56 Y [address] ROOM: [place] [address] LOCATION: [facility] ADMIT DATE: 01/29/2017 Consultation DISCHARGE DATE: 02/01/2017 FAMILY PHYSICIAN: Derrell Chaney MD ATTENDING PHYSICIAN: Jeff Tucker APRN FOR MARISSA FAJARDO MD TGP/modl /[id number] d: 02/01/173 t: 02/14/17 1650, CONSULTATION REPORT
--- NOTE | ~2017-01-29 | OR ---
PATIENT'S NAME: ALISSA ROLON [facility] AGE: 56 Y [address] ROOM: [address] [place], [place] [address] LOCATION: GPCU ADMIT DATE: 01/29/2017 OR/Procedure Report DISCHARGE DATE: FAMILY PHYSICIAN: ANTHONY RUIZ MD ATTENDING PHYSICIAN: EZRA BAH SURGEON: Scott Eisenberg MD PROFESSOR OF GEOLOGY: DATE OF PROCEDURE: 01/30/2017 Follow up of rheumatoid arthritis flare with bilateral wrist pain and swelling, left elbow pain and swelling, bilateral knee pain and swelling, and bilateral foot and ankle pain and swelling. She is on high-dose steroids and has improved except her right knee is still fairly painful, left one less so. She has not been out of bed. Her cultures from the right knee aspirate are no growth. PHYSICAL EXAMINATION: GENERAL: She is awake, alert, and oriented x3. Mood and affect appropriate. She is much calmer today and overall has less malaise. EXTREMITIES: Her right knee has 2+ effusion. Left knee, no effusion. Range of motion of the right knee is from 5 to 115 degrees and left one is from 0 to 130 degrees with mild pain. There is slight tenderness, very minimal warmth, no redness. Wrists have mild tenderness and swelling. Left elbow has mild tenderness and swelling, less than yesterday. Ankles have less swelling. Sensation and motor function intact in lower extremities. Pulses good. Reflexes equal. IMPRESSION: Rheumatoid arthritis flare with involvement of both knees, both wrists, left elbow, both legs, and her both ankles. PLAN: It is primarily the right knee that is bothering her. Risks and benefits were discussed. Time-out was held. The right knee was injected laterally with 80 mg Depo-Medrol and 5 mL lidocaine. Orders were written for physical therapy and occupational therapy to ambulate her. I spoke with the nurse and they will start ambulating her to the bathroom. She is much improved. MD CATHERINE SCHROEDERA/modl PATIENT'S NAME: ALISSA ROLON [facility] AGE: 56 Y [address] ROOM: [place] [address] [facility] ADMIT DATE: 01/29/2017 OR/Procedure Report DISCHARGE DATE: FAMILY PHYSICIAN: ANTHONY RUIZ MD ATTENDING PHYSICIAN: EZRA BAH /[id number] d: 01/30/172003 t: 02/07/17 1130, OPERATIVE SUMMARY
--- NOTE | ~2017-01-29 | HP ---
PATIENT'S NAME: ALISSA ROLON [facility] AGE: 56 Y [address] ROOM: [id number] [place], [place] [address] [facility] AD[facility] DATE: 01/29/2017 History & Physical DISCHARGE DATE: FAMILY PHYSICIAN: ANTHONY RUIZ MD ATTENDING PHYSICIAN: EZRA BAH DATE OF SERVICE: CHIEF COMPLAINT: Diffuse joint pain in multiple joints in left elbow, left wrist, every finger of the left hand and also both knees and also both ankles and also every toe in both feet. HISTORY OF PRESENT ILLNESS: This is a 56-year-old female who has a history of rheumatoid arthritis with multiple flares in the past. Last time, she had her rheumatoid arthritis diagnosed roughly 4 years ago. Her last episode of flare was just roughly 1 month ago. Every time she has a flare, she always improve with prednisone. At this time, last Sunday again, she has the typical symptoms of her joint pain including erythema, swelling and pain in her left elbow, left wrist, left fingers, also both knees, both ankles and also every toes of both feet. She also feels hot with chills, but she denies any chest pain, shortness of breath, cough, or palpitation or dysuria or diarrhea or nausea, vomiting or any other symptoms. Last time, she took prednisone was roughly 1 month ago that is when she had the last flare. The patient denies any other symptoms. REVIEW OF SYSTEMS: As mentioned in history of present illness. All other systems were reviewed and were negative except those mentioned in history of present illness. PAST MEDICAL HISTORY: 1. Coronary artery disease status post stent in the past. 2. Diabetes type 2. 3. Hypertension. 4. Hypothyroidism. 5. Rheumatoid arthritis. 6. Most recent echo in the [facility] was in November 2016 showed EF of 30%. 7. 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 Linares, and there is a plan for AICD implantation in the future. The patient says that recently she had what sounds to me like a Holter monitor, which she wore for 2 days and the last Sunday, she sent the monitor back to Dr. Linares. She says that she has a plan for the near future AICD implantation. She had a vest one before, but she was taken off 1 week ago. According to the patient, she was told to go off the vest because the monitor has to be PATIENT'S NAME: ALISSA ROLON [facility] AGE: 56 Y [address] ROOM: [address] [address] [facility] AD[facility] DATE: 01/29/2017 History & Physical DISCHARGE DATE: FAMILY PHYSICIAN: ANTHONY RUIZ MD ATTENDING PHYSICIAN: EZRA BAH. ALLERGIES: MORPHINE CAUSES SHORTNESS OF BREATH AND CIPROFLOXACIN CAUSES RASH. HOME MEDICATIONS: Currently has been reconciled. SOCIAL HISTORY: The patient denies any cigarette or any alcohol or any illegal drug use. FAMILY HISTORY: Father has diabetes type 2 and pancreatic cancer. Mother had cancer of the uterus. PAST SURGICAL HISTORY: 1. Status post . 2. Status post 2 CABG in the past. 3. Status post mitral valve repair in the past. PHYSICAL EXAMINATION: VITAL SIGNS: At the time of my dictation; temperature 98.5, respiration 16, blood pressure 147/95, heart rate 90, saturation 97% on room air. GENERAL APPEARANCE: Alert and oriented x3, in moderate distress from pain on the joints. HEENT: Pupils equally round and reactive to light. Extraocular muscles intact. Anicteric sclerae. Nasal turbinates are normal bilaterally. Dry oral mucosa. NECK: No JVD. CARDIOVASCULAR: Regular rate and rhythm. No murmur. No rubs. No gallops. Normal S1, S2. RESPIRATORY: Clear. Chest wall nontender to palpation. ABDOMEN: Obese, soft, nontender, nondistended, bowel sounds present, no mass. EXTREMITIES: Right upper extremity within normal limits. Left upper extremity has erythema, inflammation and pain to palpation in the left elbow, left wrist and in PIP and DIP of her left hand. Also has the same finding in both knees and also in both ankles and also on joint of every toes on both feet. SKIN: Erythema and inflammation as mentioned in the extremity section above. MUSCULOSKELETAL: Joint pain as mentioned in the extremity section. NEUROLOGIC: Grossly nonfocal. LABORATORY DATA: Lactic acid 1.0, troponin less than 0.04. CPK 36. White blood cells 16.3, PATIENT'S NAME: ALISSA ROLON [facility] AGE: 56 Y [address] ROOM: [id number] [place], [place] [address] LOCATION: GPCU ADMIT DATE: 01/29/2017 History & Physical DISCHARGE DATE: FAMILY PHYSICIAN: ANTHONY RUIZ MD ATTENDING PHYSICIAN: EZRA BAH hemoglobin 10.1, hematocrit 31.3, MCV 91, platelet 318, glucose 82, BUN 19, creatinine 0.8, sodium 138, potassium 4.5, chloride 105, CO2 26, calcium 8.1, total protein 6.5, albumin 2.5, AST 14, ALT 18, alkaline phosphatase 84, total bilirubin 0.4, anion gap 11.5, globulin 4.0, GFR more than 60, ESR 119, INR 0.97, PTT 29. Urinalysis showed 100 leukocytes, positive nitrites, many bacteria and 20-50 white blood cells. CK-MB 0.6, CRP 13.80, procalcitonin 0.07. IMAGING STUDIES: None were performed in the ED. ASSESSMENT AND PLAN: 1. Regarding her polyarthralgia likely this is from the rheumatoid arthritis flare. I already called the on-call orthopedic surgeon, Dr. Eisenberg, who is coming by right now due to the arthrocentesis to rule out that it is not a septic joint. If it is consistent with rheumatoid arthritis finding on the arthrocentesis then I will start her on the IV Solu-Medrol 125 mg IV x1, followed by p.o. prednisone 60 mg daily. For pain control, she will get IV Dilaudid p.r.n., IV fentanyl p.r.n., p.o. [place] p.r.n., p.o. indomethacin p.r.n., and her home medication p.o. Ultram standing 100 mg b.i.d. IV fluids for hydration, but one at the slow rate given her low ejection fraction on the most recent echo. I will give her normal saline running at 50 mL/h and titrate as needed. Oxygen nasal cannula at all times. I will get an EKG given the patient has a prior cardiac history to make sure there is no ischemic finding. Currently, the patient denies any chest pain. Also get a blood culture 2 sets and also get urine culture. Curently the patient does not look septic. Procalcitonin and lactic acid were within normal limits. Continue her home medication for the rheumatoid arthritis. Currently home medication is being reconciled. 2. Regarding her coronary artery disease status post stent. Currently, no active issue. The patient has outpatient followup with Dr. Linares for consideration of AICD implantation. I am going to make a phone call to Dr. Linares, since the patient is already here to see what is the plan regarding AICD. 3. Diabetes type 2. I will put on a sliding scale insulin with NovoLog a.c. and at bedtime low dose and titrate as necessary. Home medication list is currently being reconciled. 4. Regarding her hypertension. Home medications currently have been reconciled. 5. Hypothyroidism. Check a TSH. Can titrate the levothyroxine dose if needed. 6. Regarding her rheumatoid arthritis. See #1 for all the details. 7. Regarding her deep vein thrombosis prophylaxis. For now, I am going to hold off on the pharmacological after the arthrocentesis. After that, PATIENT'S NAME: ALISSA ROLON [facility] AGE: 56 Y [address] ROOM: [place] [address] [facility] AD[facility] DATE: 01/29/2017 History & Physical DISCHARGE DATE: FAMILY PHYSICIAN: ANTHONY RUIZ MD ATTENDING PHYSICIAN: EZRA BAH she can get Lovenox. 8. Code status. She is a full code. Time spent in care on the day of admission 50 minutes, first 30 minutes was spent on the counseling including going over the plan of care with the patient and also addressing all the questions and concerns that the patient had to her satisfaction. This time also includes by calling the on-call orthopedic surgeon, Dr. Eisenberg to please come here to perform the arthrocentesis. The rest of the time was spent on interview, on physical examination and also on chart review. Further plan will depend on clinical course. EZRA BAH MD CC/modl /[id number]: [id number] T: [id number] HISTORY & PHYSICAL
--- NOTE | ~2017-01-29 | DS ---
PATIENT'S NAME: ALISSA ROLON [facility] AGE: 56 Y [address] ROOM: [address] [place], [place] [address] LOCATION: GPCU ADMIT DATE: 01/29/2017 Discharge Summary DISCHARGE DATE: 02/01/2017 FAMILY PHYSICIAN: Derrell Chaney MD ATTENDING PHYSICIAN: Jeff Tucker PRIMARY DIAGNOSES: 1. Acute gouty arthritis. 2. Escherichia coli urinary tract infection. 3. Questionable rheumatoid arthritis flare up. 4. Diabetes type 2. 5. Chronic systolic heart failure. PRINCIPAL PROCEDURES: Right knee arthrocentesis. It was a steroid injection by Dr. Eisenberg. LABORATORY DATA: On admission, troponin less than 0.040. WBC on admission was 16.3, prior to discharge was 12.0. H and H on admission were 10.1/31.3, prior to discharge was 9.0/28.6. Platelet was 331 upon discharge. Creatinine was stable throughout hospital stay at 1.0 upon discharge. Sodium was 140, potassium 4.2, CO2 was 25, calcium 8.2, BUN 26, glucose 141. ESR was greater than 120. UA, leukocytes 100, nitrite positive, WBC 20-50. CRP on admission was 13.8, prior to discharge was 22.4. Procalcitonin was 0.12. Synovial fluid analysis from the right knee, turbid 4+, RBC 4000, WBC 46,100, neutrophil differential 90%. Monosodium urate crystals, few intracellular monosodium urate crystals seen. Microbiology: Urine culture, E. coli, greater than 100,000. Blood cultures x2 sets, no growth. Gram stain of the synovial fluid, no growth at 3 days. Radiology, none was indicated. Cardiovascular system, none was indicated. HOSPITAL COURSE: For history of present illness please take a look at the H and P, which was done by Dr. Tucker. The patient was admitted to progressive care unit, was managed for diffuse oligoarthritis, working differential included probably secondary to flare-up of the patient's rheumatoid arthritis, and the patient did get an Orthopedic consult for an arthrocentesis of her right knee. She was started empirically on prednisone p.o. for probable rheumatoid arthritis flare-up, and was also empirically started on Rocephin for presumptive treatment for urinary tract infection based on her urine analysis. By the next day, the patient did get her right arthrocentesis done and the result confirmed what appeared to be acute gout attack. It was assumed probably the patient's generalized joint pain may be diffuse acute gout flare of her joints which is superimposed on her rheumatoid arthritis. She was continued on the prednisone, however, the vancomycin which was started on was discontinued and by the second day of the hospital stay, the orthopedic PATIENT'S NAME: ALISSA ROLON [facility] AGE: 56 Y [address] ROOM: [address] [place], [place] [address] LOCATION: GPCU ADMIT DATE: 01/29/2017 Discharge Summary DISCHARGE DATE: 02/01/2017 FAMILY PHYSICIAN: Derrell Chaney MD ATTENDING PHYSICIAN: Jeff Tucker doctor went ahead to inject her right knee with steroids. By the second day of hospital stay, the patient's arthritis pain had significantly improved. She was now able to ambulate on the hallway. Her leukocytosis as well had improved as well. She was eventually switched from Rocephin to Levaquin. Her acute gout flare was treated with colchicine and upon discharge, she was put on allopurinol. By the third day of her hospital stay, her arthritis pain had significantly improved such that she was ambulating pretty okay without her usual cane on the hallway. Clinically, she looked great and it was at this point, that she felt that she was comfortable going home and the patient was discharged home. Her vital signs were stable. Her food writer is Dr. Linares also followed her during the hospital stay given her chronic systolic heart failure which remained stable throughout her hospital stay. Upon discharge, her vital signs were stable. She was happy and in good spirits and she was discharged home. DISCHARGE PLAN: Included for the patient to follow up with her PCP in the next 3-4 days. Follow up with Dr. Linares in the next [address] Flores in the next three weeks, and her groundwater programs director, Dr. Alvarez in 2 weeks. MEDICATION UPON DISCHARGE: 1. Aspirin 325 mg p.o. daily. 2. Wellbutrin 150 mg p.o. twice daily. 3. Coreg 6.25 mg p.o. twice daily. 4. Plavix. 5. Neurontin 300 mg p.o. 3 times daily. 6. Lantus 80 units subcu daily. 7. Synthroid 125 mcg p.o. daily before breakfast. 8. Zyrtec 10 mg p.o. at bedtime. 9. Glucophage 1 g p.o. twice daily. 10. Levaquin 750 mg p.o. daily. 11. Methotrexate 20 mg p.o. every 7 days. 12. Zocor 40 mg p.o. at bedtime. 13. Tramadol 50-100 mg p.o. q.4 hours p.r.n. 14. Prednisone 60 mg p.o. daily for one day and then 50 mg p.o. daily for 3 days, then 40 mg p.o. daily for 3 days, then 30 mg daily for 3 days, then 20 mg p.o. daily for 3 days, then 10 mg p.o. daily for 3 days, then 5 mg p.o. daily for 3 days, then stop. 15. Lasix 40 mg p.o. daily. 16. Multivitamin 1 capsule p.o. daily. 17. Tofacitinib citrate 11 mg p.o. daily. 18. Tylenol Extra Strength 1 g p.o. 4 times daily. 19. Flonase 50 mcg 1 spray in nose every day p.r.n. 20. Folic acid 200 mcg p.o. daily. 21. Allopurinol 200 mg p.o. daily. PATIENT'S NAME: ALISSA ROLON [facility] AGE: 56 Y [address] ROOM: [place] [address] [facility] ADMIT DATE: 01/29/2017 Discharge Summary DISCHARGE DATE: 02/01/2017 FAMILY PHYSICIAN: Derrell Chaney MD ATTENDING PHYSICIAN: Jeff Tucker MD SAMINA NEGRETE/zina /[id number] d: 02/01/17 1800 t: 02/03/17 1429, DISCHARGE SUMMARY
[~2017-01-29 12:56] MED LIST changes: +FLONASE 50 MCG/16 GM NOSE; +RANEXA ER500 MG PO
[2017-01-29 13:44] LABS: BASOPHIL % 0.2 %; EOSINOPHIL # 0.1 K/uL (0.0-0.5); EOSINOPHIL % 0.9 %; HEMATOCRIT 31.3 % (33.0-46.0); HEMOGLOBIN 10.1 g/dL (10.0-15.0); IMMATURE GRANULOCYTE # 0.2 K/uL (0.0-0.3); IMMATURE GRANULOCYTE % 0.9 %; LYMPHOCYTE # 2.2 K/uL (0.8-4.0); LYMPHOCYTE % 13.6 %; MCH 29.4 pg (27.0-34.0); MCHC 32.3 gm/dL (32.0-36.5); MONOCYTE # 1.3 K/uL (0.0-1.0); MONOCYTE % 8.1 %; MPV 8.7 fl (9.4-12.4); NEUTROPHIL # (ANC) 12.5 K/uL (1.8-7.8); NEUTROPHIL % 76.3 %; NRBC % 0 /100WBC (0-0.00); RBC 3.44 M/uL (3.50-5.50); WBC 16.3 K/uL (4.0-11.0)
[2017-01-29 13:45] LABS: PLATELET COUNT 318 K/uL (150-450)
[2017-01-29 13:53] LABS: INR - (THERAPEUTIC) 0.97 (0.92-1.07); PROTIME 10.2 SECONDS (9.8-11.4); PTT 29 SECONDS (25-32)
[2017-01-29 14:14] LABS: ALBUMIN 2.5 gm/dL (3.5-5.0); ALK PHOS 84 IU/L (33-138); ALT 18 IU/L (12-78); ANION GAP 11.5 (10.0-19.0); AST 14 IU/L (10-40); BLOOD UREA NITROGEN 19 mg/dL (6-24); CALCIUM 8.1 mg/dL (8.5-10.5); CHLORIDE 105 mMol/L (96-110); CO2 26 mMol/L (22-32); CPK 36 IU/L (21-215); CREATININE 0.8 mg/dL (0.5-1.1); ESTIMATED GFR (MDRD EQUATION) > 60; POTASSIUM 4.5 mMol/L (3.7-5.1); SODIUM 138 mMol/L (135-145); TOTAL BILIRUBIN 0.4 mg/dL (0.0-1.5); TOTAL PROTEIN 6.5 g/dL (6.0-8.4)
[2017-01-29 14:27] LABS: BILIRUBIN URINE NEGATIVE (NEGATIVE); BLOOD URINE 150 /UL (NEGATIVE); COLOR URINE YELLOW (YELLOW); GLUCOSE URINE NEGATIVE (NEGATIVE); KETONE URINE NEGATIVE (NEGATIVE); LEUKOCYTES URINE 100 /UL (NEGATIVE); NITRITE URINE POSITIVE (NEGATIVE); PROTEIN URINE 100 mg/dL (NEGATIVE); TURBIDITY URINE 1+ (CLEAR); UROBILINOGEN URINE NORMAL (NORMAL)
[2017-01-29 14:46] LABS: BACTERIA URINE MANY (NEGATIVE); EPITHELIAL URINE 0-2 #/HPF (NEGATIVE); RBC URINE 0-2 #/HPF (NEGATIVE); WBC URINE 20-50 #/HPF (NEGATIVE)
[2017-01-29] MEDS ORDERED: ZOCOR40 MG PO (18:46)
[2017-01-29] MEDS ORDERED: FLAX OIL1000 MG PO (18:47)
[2017-01-29] MEDS ORDERED: FOLIC ACID 40400 MCG PO (18:48)
--- NOTE | 2017-01-29 20:39 | NUR ---
56 Y/O FEMALE ADMITTED FOR UTI, WEAKNESS AND RHEUMATOID ARTHRITIS EXACERBATION. PT IS A&OX3, HAS BEEN UNABLE TO MOVE OR AMBULATE AND HER HSUBAND STATES HE HAS BEEN DOING EVERYTHING FOR HER THESE PAST FEW DAYS. PT WAS RECENTLY IN HER IN OCTOBER 2016 FOR AN LA & HEART CATH AMONGST OTHER TESTING. PT HAS BEEN WEARING A LIFE VEST FROM OCTOBER UNTIL JUST THIS LAST WEEK. PT DENIES ANY SOB OR CHEST PAIN ALLERGIES - MORPHINE=DIFF BREATHING , CIPRO=N/V & DIZZINESS MEDICAL & SURGICAL HISTORY IS SIGNIFICANT - DM-I, LA, 3 VESSEL CABG, HX BEING ON A VENT, CAD, HTN, HIGH CHOL, CHF, VARICOSE VEINS, FREQ UTI'S, RHEUMATOID ARTHRITIS, SLEEP APNEA, CHRONIC FATIGUE SYNDROME, THYROID DISEASE, FOR THE REST SEE ADMISSION ASSESMETN PART 1 REPORT GIVEN TO PT PRIMARY CARE NURSE KARINA DURÁN PT ALREADY KNOWLEDGED ON ADM EDUCATIONS
--- NOTE | 2017-01-30 04:21 | NUR ---
Significant Event: A/O, VSS on RA, 1L place while asleep, Etco2 wnl, Diluadid IVP x2, Ultram and Alta given for pain relief, R)knee aspirated by Dr Eisenberg, fluid sent for c/s, bilateral knee, ankle, feet, and L)elbow and hand pain/joint stiffness, patient states she feels better this am, IV Vanco and Ceftriaxone started, NS infusing at 50/hr to R)hand Follow up: possible bilateral knee steroid injections today
[2017-01-30 04:26] LABS: HEMATOCRIT 29.1 % (33.0-46.0); HEMOGLOBIN 9.3 g/dL (10.0-15.0); MCH 29.2 pg (27.0-34.0); MCV 91.5 fl (83.0-98.0); MPV 9.2 fl (9.4-12.4); PLATELET COUNT 291 K/uL (150-450); RBC 3.18 M/uL (3.50-5.50); RDW-CV 15.9 % (11.9-14.6); WBC 13.2 K/uL (4.0-11.0)
[2017-01-30 04:59] LABS: ALK PHOS 69 IU/L (33-138); ALT 15 IU/L (12-78); ANION GAP 12.6 (10.0-19.0); AST 9 IU/L (10-40); BLOOD UREA NITROGEN 15 mg/dL (6-24); CALCIUM 8.3 mg/dL (8.5-10.5); CHLORIDE 103 mMol/L (96-110); CO2 24 mMol/L (22-32); CREATININE 0.8 mg/dL (0.5-1.1); ESTIMATED GFR (MDRD EQUATION) > 60; POTASSIUM 4.6 mMol/L (3.7-5.1); SODIUM 135 mMol/L (135-145); TOTAL BILIRUBIN 0.4 mg/dL (0.0-1.5); TOTAL PROTEIN 6.7 g/dL (6.0-8.4)
--- NOTE | 2017-01-30 13:00 | NUR ---
Introduced self and role of care management to patient. Patient lives in [place] with her . She uses a cane at home. She is concerned about going home as she was unable to walk when she was admitted and has 5 steps into her home. Did tell her we will see how she does with therapy as was orderd today. Talked about skilled care and she says about 8 years ago she had to go to SNF for a short time. Talked to her about [facility]. Told her will need to check her insurance benefits for skilled care. She hopes to go home but says she will have to be moving better. Did talk with her about a ramp. She says they have talked about a ramp for several years but it may be time for her to put one in. Will follow.
--- NOTE | 2017-01-30 18:31 | NUR ---
PATIENT UP TO CHAIR THIS AFTERNOON, PT/OT ORDERED. STEROID INJECTION TO RIGHT KNEE. VSS, SATS HIGH 90'S ON RA. PATIENT UP TO BR W/ 1 ASSIST AND CANE, GAIT BELT.
[2017-01-31 03:42] LABS: BASOPHIL % 0.2 %; HEMATOCRIT 27.8 % (33.0-46.0); HEMOGLOBIN 8.8 g/dL (10.0-15.0); IMMATURE GRANULOCYTE # 0.1 K/uL (0.0-0.3); LYMPHOCYTE # 1.7 K/uL (0.8-4.0); LYMPHOCYTE % 12.7 %; MCHC 31.7 gm/dL (32.0-36.5); MCV 91.7 fl (83.0-98.0); MONOCYTE # 0.7 K/uL (0.0-1.0); MONOCYTE % 5.6 %; MPV 9.5 fl (9.4-12.4); NEUTROPHIL # (ANC) 10.6 K/uL (1.8-7.8); NEUTROPHIL % 80.5 %; NRBC % 0 /100WBC (0-0.00); PLATELET COUNT 319 K/uL (150-450); RBC 3.03 M/uL (3.50-5.50); RDW-CV 15.9 % (11.9-14.6); WBC 13.2 K/uL (4.0-11.0)
[2017-01-31 04:05] LABS: ANION GAP 10.5 (10.0-19.0); CALCIUM 8.4 mg/dL (8.5-10.5); CHLORIDE 105 mMol/L (96-110); CO2 26 mMol/L (22-32); CREATININE 0.9 mg/dL (0.5-1.1); ESTIMATED GFR (MDRD EQUATION) > 60; MAGNESIUM 2.3 mg/dL (1.8-2.6); POTASSIUM 4.5 mMol/L (3.7-5.1); SODIUM 137 mMol/L (135-145)
[2017-01-31 04:08] LABS: BLOOD UREA NITROGEN 27 mg/dL (6-24)
--- NOTE | 2017-01-31 05:29 | NUR ---
Patient is oriented x4. VSS on RA. Lung sounds are clear and diminished. Bowel sounds present, abdomen soft. Ambulates as a one assist with a cane. One IV in right forearm and another IV in right hand. 700mL of output today. Last pain pill was at 0300 for arthritis pain. Diabetic diet for meals.
--- NOTE | 2017-01-31 12:42 | NUR ---
CONSULT RECEIVED RE: NEW DIAGNOSIS OF GOUT PER RN. REVIEWED LOW PURINE DIET EDUCATION WITH PT AND , RECEPTIVE. LEFT DIET EDUCATION MATERIAL AND CONTACT INFORMATION WITH PT.
--- NOTE | 2017-01-31 13:30 | NUR ---
Talked to patient's nurse and therapist. Patient is moving better today. Talked with patient about discharge plans. She says she will be able to go home as today has been a much better day. She says the therapy has helped. Talked with her about HHC and she is interested in HHC with therapy. She says it is hard sometimes for her to get to therapy and for her to get her there, so HHC would be great. Gave her options of HHC agencies and she selects [facility] as her has had them before. Will make referral. Will follow.
--- NOTE | 2017-01-31 17:24 | NUR ---
A&O. 1PA AMB IN HALLS. SBP 130'S-150'S. HR 60;S. RA. AFEBRILE. NO C/O PAIN. SHOWERED THIS AM. ATBX CHANGED TO PO. 2L FLUID RSTRICTION. ACHS. AT BEDSIDE. HOME TOMORROW?
[2017-02-01 04:20] LABS: BASOPHIL % 0.1 %; EOSINOPHIL % 0.1 %; HEMATOCRIT 28.6 % (33.0-46.0); IMMATURE GRANULOCYTE # 0.1 K/uL (0.0-0.3); IMMATURE GRANULOCYTE % 0.6 %; LYMPHOCYTE # 1.7 K/uL (0.8-4.0); MCH 28.7 pg (27.0-34.0); MCHC 31.5 gm/dL (32.0-36.5); MCV 91.1 fl (83.0-98.0); MONOCYTE # 0.9 K/uL (0.0-1.0); MONOCYTE % 7.5 %; MPV 9.2 fl (9.4-12.4); NEUTROPHIL # (ANC) 9.3 K/uL (1.8-7.8); NEUTROPHIL % 77.7 %; NRBC % 0 /100WBC (0-0.00); PLATELET COUNT 351 K/uL (150-450); RBC 3.14 M/uL (3.50-5.50); RDW-CV 15.8 % (11.9-14.6)
[2017-02-01 04:33] LABS: ANION GAP 11.2 (10.0-19.0); CALCIUM 8.2 mg/dL (8.5-10.5); MAGNESIUM 2.3 mg/dL (1.8-2.6); POTASSIUM 4.2 mMol/L (3.7-5.1)
--- NOTE | 2017-02-01 04:43 | NUR ---
Patient is oriented x4. VSS on RA. Lung sounds clear. Bowel sounds present. Ambulates with one assist and cane. One IV in right forearm. 2L fluid restriction. 300 intake 600 output. Last pain pill at 0300 for right knee pain. Diabetic diet. Should go home today.
[2017-02-01] MEDS ORDERED: LEVAQUIN 750 M750 MG PO (12:19)
[2017-02-01] MEDS ORDERED: DELTASONE20 MG PO (12:26)
[2017-02-01] MEDS ORDERED: ZYLOPRIM100 MG PO (12:34)
--- NOTE | 2017-02-01 13:15 | NUR ---
Patient is discharging to home today. Called and spoke with Nohemi at [facility] and they can accept her on service. Referral information and discharge orders faxed to [facility]. Talked with patient and and updated them. They are glad she can go home today and will have [facility].
--- NOTE | 2017-02-01 13:50 | NUR ---
D/C ORDERS RECIEVED. REVIEWED WITH THE PATIENT AND HER SPOUSE ALL D/C INFORMATION INCLUDING MEDICATIONS, FOLLOW-UP APPTS, INSTRUCTIONS, AND CARES. KRAScan PRINTOUTS WERE GIVEN ON NEW MEDICATIONS. PIV D/C'D AND CATHETER INTACT. CM IN TO SEE BEFORE D/C AND SET UP PT/OT WITH HOME HEALTH. CHF CALENDAR GIVEN AND TEACHING WAS DONE WITH THE PATIENT. UP TO DATE ON PNEUMONIA VACCINE. BOTH THE PATIENT AND HER SPOUSE VERBALIZED UNDERSTANDING OF ALL D/C TEACHING. TAKEN VIA W/C AND LABELING MACHINE OPERATOR TO THE FRONT ENTRANCE OF THE HOSPITAL AND HER SPOUSE TO DRIVE HER HOME.
== END 2017-02-01 13:50 | disposition home health service (06) | DRG 554 ==
LOC: GMED 12:56 → GPCU 16:38
PROVIDERS: Emergency Medicine; Hospitalist; Nurse Practitioner Family; ADMIT Internal Medicine
PROC: 0S9C3ZX Drainage of Right Knee Joint, Percutaneous Approach, Diagnostic (ICD-10-PCS; 2017-01-29)
PROC: 3E0U33Z Introduction of Anti-inflammatory into Joints, Percutaneous Approach (ICD-10-PCS; principal; 2017-01-30)
PROC: 3E0U3BZ Introduction of Anesthetic Agent into Joints, Percutaneous Approach (ICD-10-PCS; principal; 2017-01-30)
DX: M10.9 Gout, unspecified (principal); I11.0 Hypertensive heart disease with heart failure; I50.22 Chronic systolic (congestive) heart failure; N39.0 Urinary tract infection, site not specified; B96.20 Unspecified Escherichia coli [E. coli] as the cause of diseases classified elsewhere; I10 Essential (primary) hypertension; M06.9 Rheumatoid arthritis, unspecified; Z79.4 Long term (current) use of insulin; I25.10 Atherosclerotic heart disease of native coronary artery without angina pectoris; Z95.1 Presence of aortocoronary bypass graft; Z92.25 Personal history of immunosuppression therapy; I25.5 Ischemic cardiomyopathy; E11.65 Type 2 diabetes mellitus with hyperglycemia; G62.9 Polyneuropathy, unspecified; M15.9 Polyosteoarthritis, unspecified; I25.2 Old myocardial infarction; E03.9 Hypothyroidism, unspecified; Z88.5 Allergy status to narcotic agent; Z79.82 Long term (current) use of aspirin; Z79.02 Long term (current) use of antithrombotics/antiplatelets; Z79.84 Long term (current) use of oral hypoglycemic drugs
CPT/HCPCS: J0696; J1040; J1170; J1650; J1956; J2930; J3010; J3370; J7030; J7040; J7512; J8610

== ENCOUNTER 2017-03-16 18:15 | Emergency (ER) | payer BC ==
--- NOTE | ~2017-03-16 | ER ---
[facility] 56 Y [address] ROOM: [place] [address] LOCATION: ED ADMIT DATE: 03/16/2017 ER/Outpatient Report DISCHARGE DATE: 03/16/2017 FAMILY PHYSICIAN: Derrell Chaney MD ATTENDING PHYSICIAN: Shaji Flores Time of Arrival: 1817 hours. Time of Exam: 1817 hours. CHIEF COMPLAINT: Possible allergic reaction. HISTORY OF PRESENT ILLNESS: The patient states on Sunday, she had an infusion at Dr. Alvarez's office for rheumatoid arthritis and then on , she developed a headache, some swelling on her right side of her face, and lips feel slightly swollen. Feels like her throat is on fire and feels like her heart had some skipped beats. She states she is nauseated, but no vomiting. Does have some shortness of breath with activity. Has not felt feverish or chills. States that she did talk to Dr. Alvarez's office. They were concerned that she was having a reaction to the injections since she had never the medicine before and wanted her evaluated. ALLERGIES: CIPRO, MORPHINE. CURRENT MEDICATIONS: On her chart and reviewed by me. PAST MEDICAL HISTORY: Rheumatoid arthritis, coronary artery disease, jdq-hylwiky-zhyjdkpzo diabetes, hypertension, hypothyroidism, and gout. PAST SURGICAL HISTORY: Coronary artery bypass graft of 3 vessels x2, mitral valve repair, , and neck surgery. SOCIAL HISTORY: She presents to the ER accompanied by her . Denies the use of tobacco, drugs, or alcohol. REVIEW OF SYSTEMS: Negative other than those mentioned in the HPI. PATIENT'S NAME: ALISSA ROLON [facility] AGE: 56 Y [address] ROOM: [place] [address] LOCATION: ED ADMIT DATE: 03/16/2017 ER/Outpatient Report DISCHARGE DATE: 03/16/2017 FAMILY PHYSICIAN: Derrell Chaney MD ATTENDING PHYSICIAN: Shaji Flores PHYSICAL EXAMINATION: VITAL SIGNS: She weighs 114 kg. Blood pressure is 198/88, pulse of 103, respirations 16, temperature of 97.7 tympanic, O2 saturation is 95% on room air. GENERAL: She is awake, alert, and oriented x4. SKIN: [place], warm, and dry. RESPIRATIONS: Even and nonlabored. Lung sounds are clear throughout. HEART: Regular rate and rhythm. HEENT: She does have some swelling or redness noticed of her cheeks. Her oropharynx is clear. NECK: Supple. No lymphadenopathy. EMERGENCY ROOM COURSE: Saline lock was initiated. EKG was completed. It does not show significant changes from previous EKGs. CBC is within normal limits. Chem panel: Sodium is 141, potassium is 3.5, chloride of 104. Her BUN was 20 with a creatinine of 1.1. Cardiac enzymes: CPK was 52, CK-MB was 0.9, and troponin was normal. Lactate was 3 and procalcitonin was normal. She was given Solu-Medrol 125 mg IV and Benadryl 25 mg IV. She was monitored for half an hour. She reports her symptoms have improved. She is feeling better. Vital signs remained stable. IMPRESSION: Allergic reaction. PLAN: Home, rest. She could continue taking Benadryl as needed. I did encourage her to follow up with Dr. Alvarez in the next 2 to 3 days or her primary provider. She verbalized understanding. YUAN GRECO APRN FOR MD MIKEL RIOS/zina /[id number] d: 03/17/17 0027 t: 03/20/17 1308, OUTPATIENT REPORT
[~2017-03-16 18:15] MED LIST changes: +DELTASONE20 MG PO; +FLAX OIL1000 MG PO; +FOLIC ACID 40400 MCG PO; +LEVAQUIN 750 M750 MG PO; +ZYLOPRIM100 MG PO
[2017-03-16 18:45] LABS: BASOPHIL % 0.4 %; EOSINOPHIL # 0.1 K/uL (0.0-0.5); EOSINOPHIL % 1.2 %; IMMATURE GRANULOCYTE # 0.1 K/uL (0.0-0.3); IMMATURE GRANULOCYTE % 1.1 %; LYMPHOCYTE # 2.2 K/uL (0.8-4.0); LYMPHOCYTE % 23.8 %; MCH 28.3 pg (27.0-34.0); MCHC 31.8 gm/dL (32.0-36.5); MCV 88.9 fl (83.0-98.0); MONOCYTE # 0.8 K/uL (0.0-1.0); MONOCYTE % 8.5 %; MPV 9.7 fl (9.4-12.4); NEUTROPHIL # (ANC) 5.9 K/uL (1.8-7.8); NRBC % 0 /100WBC (0-0.00); PLATELET COUNT 321 K/uL (150-450); RBC 3.89 M/uL (3.50-5.50); RDW-CV 15.9 % (11.9-14.6)
[2017-03-16 18:46] LABS: HEMATOCRIT 34.6 % (33.0-46.0)
[2017-03-16 19:07] LABS: ALBUMIN 2.8 gm/dL (3.5-5.0); ALK PHOS 88 IU/L (33-138); ALT 26 IU/L (12-78); ANION GAP 13.5 (10.0-19.0); AST 17 IU/L (10-40); BLOOD UREA NITROGEN 20 mg/dL (6-24); CALCIUM 8.7 mg/dL (8.5-10.5); CHLORIDE 104 mMol/L (96-110); CO2 27 mMol/L (22-32); CPK 52 IU/L (21-215); CREATININE 1.1 mg/dL (0.5-1.1); POTASSIUM 3.5 mMol/L (3.7-5.1); SODIUM 141 mMol/L (135-145); TOTAL PROTEIN 7.1 g/dL (6.0-8.4)
[2017-03-16 19:08] LABS: TOTAL BILIRUBIN 0.2 mg/dL (0.0-1.5)
== END 2017-03-16 20:28 | disposition disaster alternative care site (69) ==
LOC: GMED 18:15
PROVIDERS: Emergency Medicine
DX: T78.49XA Other allergy, initial encounter (principal); R06.02 Shortness of breath; R11.0 Nausea; I10 Essential (primary) hypertension; E11.9 Type 2 diabetes mellitus without complications; I25.10 Atherosclerotic heart disease of native coronary artery without angina pectoris; E03.9 Hypothyroidism, unspecified; Z88.1 Allergy status to other antibiotic agents; Z88.5 Allergy status to narcotic agent; Z95.1 Presence of aortocoronary bypass graft; Z98.890 Other specified postprocedural states; Z79.84 Long term (current) use of oral hypoglycemic drugs; Z79.82 Long term (current) use of aspirin; Z79.891 Long term (current) use of opiate analgesic; Z79.899 Other long term (current) drug therapy
CPT/HCPCS: J1200; J2930

== ENCOUNTER 2017-03-18 03:37 | Inpatient (IN) | payer BC ==
[~2017-03-18] VITALS: Ht 170.2 cm; Wt 113.9 kg
--- NOTE | ~2017-03-18 | ER ---
[facility]GE[facility] 56 Y [address] ROOM: [place] [address] LOCATION: GPCU ADMIT DATE: 03/18/2017 ER/Outpatient Report DISCHARGE DATE: FAMILY PHYSICIAN: ANTHONY RUIZ MD ATTENDING PHYSICIAN: JEM RUSSELL Admission date and time documented on the medical record. I saw the patient at 0350 hours. CHIEF COMPLAINT: Anterior chest pain. HISTORY OF PRESENT ILLNESS: This patient is a 56-year-old female, who was brought to the emergency room by paramedics via ambulance along with [place] [id number] EMS crew. The patient was sitting watching TV around 0100 hours, developed mid-anterior chest pain radiating to her upper back and shoulders. She had accompanied shortness of breath and nausea without vomiting, diaphoresis, lightheadedness, or dizziness. Did not have syncope or near syncope. No headache; eyes, ears, nose, throat, neck, or spine pain. No recent cough, cold, flus, fever, chills, or sweats. No fall or trauma. The patient does have significant cardiac history with known coronary artery disease status post myocardial infarction. She has had three-vessel coronary artery bypass graft x2. She has had valvular heart disease with mitral valve repair. She has hypertension, ischemic cardiomyopathy, cardiomegaly, and some congestive failure. No abdominal pain. No diarrhea. No urinary complaints. No joint or muscle swelling, redness, or pain. No skin eruptions or rash. History of hep-yobvzln-lkzhmkonu diabetes mellitus type 2 and hypothyroidism. No psych issues. No neuro changes other than some neuropathy. HOME MEDICATIONS: See attached medication list. ALLERGIES: CIPRO AND MORPHINE SULFATE. SOCIAL HISTORY: Nonsmoker, nondrinker. SIGNIFICANT PAST MEDICAL HISTORY: Atherosclerotic ischemic heart disease and coronary artery disease status post myocardial infarction, hypertension, qvx-iwnvmyu-mayrsiucy diabetes mellitus type 2, hypothyroidism, gout, rheumatoid arthritis, degenerative osteoarthritis, valvular heart disease, ischemic cardiomyopathy, and neuropathy. [facility] AGE: 56 Y [address] ROOM: [place] [address] LOCATION: GPCU ADMIT DATE: 03/18/2017 ER/Outpatient Report DISCHARGE DATE: FAMILY PHYSICIAN: ANTHONY RUIZ MD ATTENDING PHYSICIAN: JEM RUSSELL OPERATIONS: Spine surgery, knee surgery with ACL repair; ; neck surgery; mitral valve repair; three-vessel coronary artery bypass graft x2; cardiac catheterization with PTCA and stenting, last catheterization was in December of 2016, medical treatment only, no intervention. REVIEW OF SYSTEMS: All systems reviewed by me are negative with exception of those discussed in history of present illness. PHYSICAL EXAMINATION: VITAL SIGNS: See vital signs in the chart, I did review these. HEAD: Normocephalic. EYES: Extraocular muscles intact. PERRL. Sclerae and conjunctivae clear, nonicteric. EARS, NOSE, THROAT: Clear. Mucous membranes moist. Teeth and jaw intact. NECK: No nuchal rigidity. No thyromegaly or cervical adenopathy. No carotid bruits. No tenderness. SPINE: Negative. LUNGS: Clear. No rales, rhonchi, or wheezes. HEART: Regular. Pulses are palpable. No chest wall or ribcage pain to palpation. ABDOMEN: Obese, soft, nondistended, nontender. Good bowel tones. No organomegaly or abnormal mass palpable. No CVA tenderness. EXTREMITIES: Without peripheral edema, cyanosis, or deformity. NEUROVASCULAR: Intact. SKIN: Clear. No skin eruptions or rash. DIAGNOSTIC DATA: EKG showed sinus rhythm, sinus arrhythmia. No acute ST elevation, ischemic change, or . Chest x-ray showed cardiomegaly, increased vascular congestion. No acute infiltrate. We will review x-ray with radiologist. LABORATORY DATA: CMS was normal except for slight low potassium 3.5, elevated glucose 144, low calcium of 8.4, elevated BUN of 26, low GFR 57, magnesium normal 1.8. CPK was normal at 37. Point of care cardiac enzymes were normal. ProBNP was elevated 2566. D-dimer was normal at 0.48. White count 10,500; segs 67, lymphs 23, monos 8, and eos 1; hemoglobin 10.3; hematocrit 32.3; and platelet count is 307,000. PTT 24, pro-time 9.8 with an INR 0.93. The patient was given 4 baby aspirin en route in the ambulance. She took a couple of sublingual nitro at home and was given one sublingual nitro en route in the ambulance and then put on IV nitro drip. Nitro did help. She had a PATIENT'S NAME: ALISSA ROLON [facility] AGE: 56 Y [address] ROOM: [address] [place], [place] [address] [facility] AD[facility] DATE: 03/18/2017 ER/Outpatient Report DISCHARGE DATE: FAMILY PHYSICIAN: ANTHONY RUIZ MD ATTENDING PHYSICIAN: JEM RUSSELL A little bit of nausea and was given Zofran for nausea and vomiting IV here in the emergency department. We got her up to 20 mcg of nitro IV drip here in the emergency department. She did have significant improvement in her chest pain although was not completely gone at this time. Vital signs remained stable. IMPRESSION: 1. Chest pain, unstable angina with known coronary artery disease status post myocardial infarction. The patient has a history of hypertension, ischemic cardiomyopathy, valvular heart disease involving mitral valve and failure pattern with increased vascular congestion on x-ray. 2. Lfu-kafhysn-nsizcxsxt diabetes mellitus type 2. 3. Hypothyroidism. 4. History of ischemic cardiomyopathy. 5. Rheumatoid arthritis. 6. Degenerative osteoarthritis. 7. Gout. 8. Peripheral neuropathy. PLAN: I did discuss this patient with Dr. Russell, hospitalist. Dr. Russell is coming in to the emergency room to evaluate the patient and admit the patient to the hospital for further cardiac evaluation. Discussion ensued with the patient concerning my findings and recommendations, she understands. Accumulated critical care time 30 minutes. MD NAN RIOS/modl /[id number] d: 03/18/17525 t: 03/28/17 181, OUTPATIENT REPORT
--- NOTE | ~2017-03-18 | CON ---
PATIENT'S NAME: ALISSA IVAN [facility] AGE: 56 Y [address] ROOM: [place] [address] [facility] AD[facility] DATE: 03/18/2017 Consultation DISCHARGE DATE: FAMILY PHYSICIAN: ANTHONY RUIZ MD ATTENDING PHYSICIAN: JEM RUSSELL DATE OF CONSULTATION: 03/18/2017 REFERRING PHYSICIAN: GIA FORRESTER MD PRIMARY FLORIST SUPPLIES SALESPERSON: Dr. Linares. REQUESTING PROVIDER: Dr. Russell. REASON FOR CONSULTATION: Unstable angina. CHIEF COMPLAINT: Chest pain. HISTORY OF PRESENTING ILLNESS: The patient is a very pleasant 56-year-old female who usually sees Dr. Linares at [facility] here in [place]. She has extensive coronary artery disease, status post CABG x2 separate occasions. First CABG was done in [place], and the second CABG along with a mitral valve repair was done at [facility]. I am seeing her today because I am on-call. The patient came in last night with complaints of chest discomfort. This started about 1 o'clock in the morning, and she was watching TV. It started as acid reflux-type symptoms, but then she reports it started becoming more of a pressure type in nature and radiated to her shoulders as well as to the neck, associated with throbbing in her cheeks. She reports it was 8/10 on pain scale. She took 2 sublingual nitroglycerin at home, and that did decrease the chest pain. She called 911, came into the emergency room, got one more nitroglycerin, as well as nitroglycerin drip was started, and it took about 2 hours for the chest pain to completely resolve. She is on 20 mcg of nitroglycerin drip. During interview, the patient is very comfortable and does not have any trouble breathing or chest discomfort. The chest pain she had at home was associated with shortness of breath, diaphoresis, and anxiety. She also says she reported slightly dizzy with that. She does not have any recent shortness of breath, lower extremity edema, PND, or orthopnea. PATIENT'S NAME: ALISSA IVAN [facility] AGE: 56 Y [address] ROOM: [address] [place] [address] LOCATION: GPCU ADMIT DATE: 03/18/2017 Consultation DISCHARGE DATE: FAMILY PHYSICIAN: ANTHONY RUIZ MD ATTENDING PHYSICIAN: JEM RUSSELL She does not have any change in her vision, swallowing, sensation, or strength. She does not have any headaches, skin rashes, constipation, diarrhea, or urinary difficulties. No recent travel. REVIEW OF SYSTEMS: All review of systems discussed with the patient. Pertinent positives and negatives mentioned in the History of Presenting Illness. PAST MEDICAL HISTORY: 1. Coronary artery disease, status post CABG in 1999 and redo CABG in 2008 along with mitral valve repair at [facility]. 2. PCI of the mid LAD in 2005 in the setting of acute coronary syndrome by Dr. Linares. 3. The patient had ACS again in October of 2016 and had another cardiac cath with patent Y-graft to the diagonal as well as circumflex. The RCA is un- revascularized; however, it is a small vessel. There is moderate-to- severe disease in the proximal portion. Medical therapy was recommended at that time. 4. Type 2 diabetes mellitus, insulin dependent. 5. Hypertension. 6. Hypothyroidism. 7. Rheumatoid arthritis. 8. Ischemic cardiomyopathy with LVEF of about 40%. 9. Chronic combined systolic and diastolic CHF with LVEF of 40%, NYHA Class II to III. PAST SURGICAL HISTORY: 1. . 2. ACL repair. 3. CABG in 1999. 4. Redo CABG with mitral valve repair in 2008. 5. Spinal surgery in 2013. ALLERGIES: MORPHINE CAUSES SWELLING. HOME MEDICATIONS: She is on: 1. Aspirin 325 mg daily. 2. Insulin 80 units b.i.d. 3. Neurontin 300 t.i.d. 4. Metformin 1000 b.i.d. 5. Bupropion 150 b.i.d. 6. Synthroid 125 mcg daily. PATIENT'S NAME: ALISSA IVAN [facility] AGE: 56 Y [address] ROOM: [address] [place], [place] [address] LOCATION: GPCU ADMIT DATE: 03/18/2017 Consultation DISCHARGE DATE: FAMILY PHYSICIAN: ANTHONY RUIZ MD ATTENDING PHYSICIAN: JEM RUSSELL 7. Coreg 6.25 b.i.d. 8. Lasix 40 b.i.d. 9. Zyrtec 10 daily. 10. Multivitamins daily. 11. Plavix 75 daily. 12. Tramadol 50 q.h.s. 13. Zocor 40 mg q.h.s. 14. Flaxseed oil 1000 b.i.d. 15. Folic acid 800 daily. 16. Glimepiride 2 mg t.i.d. 17. Lisinopril 5 mg daily. FAMILY HISTORY: There is premature coronary artery disease in her family as well as sudden cardiac in her sister who at the age of 42. SOCIAL HISTORY: The patient is . She does not smoke. No illicit drug abuse or alcohol abuse. PHYSICAL EXAMINATION: VITAL SIGNS: Her temperature is 97.4, pulse is 80, respirations 16, blood pressure 116/58, and O2 saturation is 97% on room air. Weight is 249. GENERAL: The patient is awake, alert, and oriented to time, place, and person. She is not in any apparent distress. HEENT: Head: Atraumatic and normocephalic. Eyes: No xanthelasmas. Sclerae white. Mucous membranes moist. NECK: No JVD. Thick. CARDIOVASCULAR: Normal S1 and S2. Regular rate and rhythm. No murmurs, gallops, or rubs. LUNGS: Clear to auscultation bilaterally. GASTROINTESTINAL: Soft and obese. Positive bowel sounds. EXTREMITIES: No significant lower extremity edema. NEUROLOGIC: Able to move all extremities against gravity. Normal sensation. SKIN: Warm and dry. LABORATORY DATA: Sodium 143, potassium 3.5, chloride 106, CO2 of 26, glucose 144, BUN 26, creatinine 1.1, and GFR is 58. Magnesium 1.8. Cholesterol from November of 2016: Total cholesterol 123, triglycerides 232, HDL 51, and VLDL 46. CPK times two 38 and 36, CK-MB 1.1 both times, and troponin less than 0.04 times two. ProBNP 2566. H and H are 10.3 and 32.3, platelets 307, and WBC 10.5. DIAGNOSTIC DATA: Echocardiogram done in November of 2016 shows LVEF of about 40%, moderate mitral PATIENT'S NAME: ALISSA IVAN [facility] AGE: 56 Y [address] ROOM: [place] [address] LOCATION: GPCU ADMIT DATE: 03/18/2017 Consultation DISCHARGE DATE: FAMILY PHYSICIAN: ANTHONY RUIZ MD ATTENDING PHYSICIAN: JEM RUSSELL valve stenosis with mean gradient of 6 mmHg. Cardiac cath shows patent SVG to diagonal and circumflex graft and small codominant RCA with moderate to severe disease in the proximal portion. Patent LAD stent. The patient was optimized on medications, and no intervention was done due to small vessel disease and no targets for PCI at that time. EKG: Normal sinus rhythm. There is evidence of T-wave inversion in leads I and aVL that was seen prior ECG as well. There is no evidence of any new ST changes suggestive of significant ischemia or injury pattern. ECG is essentially unchanged from her prior ECGs. IMPRESSION: 1. Chest discomfort, unstable angina. 2. Hypertension. 3. Hyperlipidemia. 4. Diabetes mellitus, insulin dependent. 5. Rheumatoid arthritis. 6. Hypothyroidism. 7. Chronic combined systolic and diastolic congestive heart failure with NYHA Class II to III symptoms, appears euvolemic on exam. PLAN: At this time, 2 sets of cardiac enzymes are negative, and there are no significant ECG changes on review this admission. She did have a recent cardiac cath, and images were reviewed. She does have an RCA that is un- revascularized; however, her graft is patent to the diagonal and circumflex which is a Y-graft, and mid LAD stent is patent. This catheterization was from October 2016, and medical therapy was recommended at that time. In the absence of new ischemic changes on ECG as well as absence of elevation of cardiac biomarkers, it may be best to continue with medical therapy and optimize her antianginal agents. She will likely benefit from long-acting Imdur. We will try to start that once her nitroglycerin drip is weaned off. Also, we will add Ranexa 500 b.i.d. I do not think she needs to be on high- dose aspirin. So, I will decrease that to 81 mg daily and continue DAPT with Plavix as well given her extensive coronary artery disease. Given her borderline LVEF in November, we can repeat that again, get a limited echocardiogram to assess LV systolic function, and see if she has any new wall motion abnormalities. I will also start her on proton pump inhibitor given that she is on 2 antiplatelet agents and her symptomatology began with a burning sensation and acid reflux-type symptoms. She may benefit from acid suppression. PATIENT'S NAME: ALISSA IVAN [facility] AGE: 56 Y [address] ROOM: [place] [address] [facility] ADMIT DATE: 03/18/2017 Consultation DISCHARGE DATE: FAMILY PHYSICIAN: ANTHONY RUIZ MD ATTENDING PHYSICIAN: JEM RUSSELL We will check lipid profile in a.m. and serial isoenzymes. I will discuss with Dr. Linares about this patient's admission, and he will follow her in a.m. Thank you very much for allowing [facility] to participate in the care of Mrs. Ivan. ALTAGRACIA ORTIZ MD AT/modl /[id number] d: 03/18/17 1146 t: 03/26/17 1236, CONSULTATION REPORT
--- NOTE | ~2017-03-18 | ECHO ---
Transthoracic Echocardiography Report (TTE) Demographics Patient Name ALISSA ROLON Date of Study 03/18/2017 Patient Number [id number] Visit Number [id number] Date of 1960 Room Number [address] Gender Female Number Age 56 year(s) Referring Custom Harvester Shimon Oliveira RDCS, Physician RVT, RD, MATERIAL CONTROL CLERK Physician Interpreting Vijay Hutchinson MD Visual Educator Physician Supervising Ordering MD/MLP Physician Nurse Stress Grocery Bagger Conclusions Summary Technically difficult exam. Definity contrast aided in visualisation of the endocardium. Systolic function is severely depressed with an ejection fraction of 35-40% There is doppler evidence of left ventricular filling pressures. There is mild mitral stenosis on a repaired mitral valve. Trace regurgitation is noted. The leaflets are not moving well as they are thickend / calcified. There is mild aortic insufficiency. Procedure Type of Study TTE procedure:2D Echocardiogram, M-Mode, Doppler , Color Doppler, Echo with Contrast. Procedure Date Date: 03/18/2017 Start: 09:12 AM Study Location: Inpatient Portable Technical Quality: Limited visualization due to body habitus. Appropriate Use Criteria: 9 Patient Status: Routine HR: 73 bpm BP: 110/67 mmHg Allergies - Morphine. - Morphine. - Other:(ciprofloxacin). M-Mode/2D Measurements LV Diastolic Dimension: 7.3 cm LV Septum Diastolic: 1.05 cm AO Root Dimension: 3 cm LV PW Diastolic: 1.09 cm AV Cusp Separation: 1.4 cm LA Dimension: 4.4 cm RV Diastolic Dimension: 3.17 cm LA volume: 70 ml LVOT: 2 cm RV Base: 3.6 cm RV Mid: 3.7 cm RV Length: 5.6 cm TAPSE: 1.5 cm TDI-S': 8.5 cm/s Doppler Measurements AV Peak Velocity: 1.31 m/s MV Peak E-Wave: 1.14 m/s AV Peak Gradient: 6.86 mmHg MV Peak A-Wave: 1.3 m/s LVOT Peak Velocity: 0.94 m/s MV E/A Ratio: 0.88 MV P1/2t: 161 msec TR Velocity:2.15 m/s MV Mean Gradient: 5 mmHg TR Gradient:18.49 mmHg Estimated RVSP: 26 mmHg PV Peak Velocity: 0.78 m/s E' Septal Velocity: 0.05 m/s PV Peak Gradient: 2.41 mmHg E' Lateral Velocity: 0.05 m/s Estimated PASP: 26.49 mmHg A' Septal Velocity: 0.05 m/s Findings Left Ventricle The left ventricle is severely dilated. There numerous wall motion abnormalities. There is mild concentric left ventricular hypertrophy. Definity was utilized for endocardial visualization. There is no obvious thrombus in the apical region. Right Ventricle The right ventricle shows moderate systolic function. . However it does not appear dilated and has trace insuffiency. Left Atrium The left atrium is mildly dilated. Mitral Valve Moderate to severe calcification of the mitral valve. It appears to be surgically fixed. There is mild stenosis with a mean gradient of 5 mmHg. Aortic Valve The aortic valve is moderately sclerotic. Tricuspid Valve Normal tricuspid valve structure and function. Pulmonic Valve Normal pulmonic valve structure and function. Trivial pulmonic valve regurgitation by color Doppler. Pericardial Effusion Epicardial fat pad noted. Miscellaneous Suboptimal subcostal window to evaluate the IVC and interatrial septum. The aorta has age related sclerotic changes and has adequate excursion. It is normal in size. Pleural Effusion No evidence of pleural effusion. Signature dtt: Jasper Linares (cardio) dtd: 03/18/17 0912 Physician Self Edit
--- NOTE | ~2017-03-18 | DS ---
PATIENT'S NAME: ALISSA ROLON [facility] AGE: 57 Y [address] ROOM: [place] [address] LOCATION: GPCU ADMIT DATE: 03/18/2017 Discharge Summary DISCHARGE DATE: 03/20/2017 FAMILY PHYSICIAN: Derrell Chaney MD ATTENDING PHYSICIAN: Atul Russell DISCHARGE DIAGNOSES: 1. Unstable angina. 2. Acute hypoxic respiratory failure. 3. Acute on chronic left ventricular congestive heart failure. 4. Insulin-dependent diabetes mellitus. 5. Rheumatoid arthritis. 6. Hypothyroidism. 7. Anemia of chronic disease. REASON FOR ADMISSION: Chest pain that she could not resolve with medications at home. Cardiology saw her immediately. She has had a recent heart catheterization. Her ejection fraction is around 30% and there was no way to approach chest pain other than medically. They added Ranexa to her regimen and increased her carvedilol, Coreg, and she improved dramatically and quickly. LABORATORY DATA: Her blood sugars have been in the 108-282 range, the average has been around 200. CPKs were benign. Her proBNP was up at 993. Troponins were all positive in the 0.04 to 0.058 range. White count and platelets were all normal. Her hemoglobin was 10.3 to 9.6. Electrolytes were normal as was kidney function. GFR was anywhere from 57 to 73. Chest x-ray showed cardiac silhouette enlarged consistent with previous imaging. She had a perihilar and infrahilar interstitial opacities consistent with some edema and CHF. DISCHARGE INSTRUCTIONS: At discharge, we will recommend low-sodium low-fat diet and activity as tolerated. Medications will be per the nursing med recon. Note that cardiology increased her Coreg and started Ranexa, which were are prescribed in addition to her usual medications. Followup will be in [address] Jasper Linares. Note the discharge took greater than 30 minutes. MANDO PEREYRA MD PATIENT'S NAME: ALISSA ROLON [facility] AGE: 57 Y [address] ROOM: [place] [address] [facility] AD[facility] DATE: 03/18/2017 Discharge Summary DISCHARGE DATE: 03/20/2017 FAMILY PHYSICIAN: Derrell Chaney MD ATTENDING PHYSICIAN: Atul Russell/elverl /[id number] d: 03/21/17 0137 t: 03/22/17 1659, DISCHARGE SUMMARY
--- NOTE | ~2017-03-18 | HP ---
[facility] AGE: 56 Y [address] ROOM: [address] [place], [place] [address] LOCATION: [facility] ADMIT DATE: 03/18/2017 History & Physical DISCHARGE DATE: FAMILY PHYSICIAN: ANTHONY RUIZ MD ATTENDING PHYSICIAN: JEM GOMEZ DATE OF SERVICE: CHIEF COMPLAINT: Chest pain. HISTORY OF PRESENT ILLNESS: A 56-year-old lady with a past medical history of coronary artery disease with a CABG done and a redo CABG done status post PCIs and multiple caths in the past, presented to the emergency department with a chest pain which started about 1 in the morning when she was watching TV, which started as acid reflux type symptoms, but progressed to pressure-like which was present in the center and radiated to both shoulders as well as to the neck. Rating about 8/10. Relieved with nitroglycerin drip in the emergency department. Currently 3/10. Associated with shortness of breath, diaphoresis, and anxiety. She did endorse having dizziness while she was experiencing this episode. She denied any recent shortness of breath, any leg swelling, any trouble swallowing, any headache, any trouble with the eyes, any constipation, diarrhea, burning on urination. REVIEW OF SYSTEMS: All other systems reviewed were negative except what is mentioned in the HPI. PAST MEDICAL HISTORY: Coronary artery disease significant for CABG done in 1999 and redo CABG done in 2008 and also had a history of mitral valve repair. She had PCI done to LAD in 2015 in the setting of an acute coronary syndrome. She also had an episode of acute coronary syndrome in October of 2016 where she had another cardiac cath, but no intervention was done since there was no target graft. Type 2 diabetes mellitus insulin dependent, hypertension, hypothyroidism, rheumatoid arthritis, ischemic cardiomyopathy with most recent ejection fraction of 30%, but the patient told me she does not have an AICD and Dr. Linares did a test, which showed an EF of 36% and it needed to be below 35%. I am assuming this test was removed the result of which I cannot see in our system here. ALLERGIES: THE PATIENT HAS ALLERGY TO MORPHINE, CIPROFLOXACIN, WELL RITUXAN. HOME MEDICATION: [facility] AGE: 56 Y [address] ROOM: [id number] [place], [place] [id number] [facility] ADMIT DATE: 03/18/2017 History & Physical DISCHARGE DATE: FAMILY PHYSICIAN: ANTHONY RUIZ MD ATTENDING PHYSICIAN: JEM GOMEZ Currently being reconciled right now. SOCIAL HISTORY: Denies cigarette or alcohol use. Father had pancreatic cancer. PHYSICAL EXAMINATION: VITAL SIGNS: Heart rate 70s, blood pressure 130/67, saturating 95% on room air, respiratory rate of 20. GENERAL: Alert and oriented x3. HEENT: Head: Atraumatic, normocephalic. Eyes: Nonicteric. No pallor. CARDIOVASCULAR: S1 and S2. No murmurs, gallops, rubs. LUNGS: Decreased air entry bilaterally with basal crepitations. ABDOMEN: Obese, soft, nontender, nondistended. Bowel sounds present. EXTREMITIES: No clubbing, cyanosis, or edema. PSYCH: Normal affect, mood, and speech. SKIN: No erythema or inflammation noted. MUSCULOSKELETAL: No joint pain or swelling noted. PSYCH: Normal affect, mood, and speech. ENDOCRINE: No thyromegaly or myxedema noted. DIAGNOSTIC DATA: EKG was done in the emergency department showing normal sinus rhythm with T- wave inversions in I and aVL which were present on the old EKG as well. Chest x-ray was done, which did show pulmonary edema. Rest of the lab work including a WBC and a chemical panel did not reveal any significant findings. D-dimer was negative. ASSESSMENT AND PLAN: 1. Unstable angina. 2. Acute hypoxic respiratory failure. 3. Acute exacerbation of systolic heart failure. 4. Coronary artery disease. 5. Insulin-dependent diabetes mellitus. 6. Rheumatoid arthritis. 7. Hypothyroidism. PLAN: We are going to admit this lady. It appears to be unstable angina at this point. We will start her on aspirin, Plavix, beta wilner, and statin. Heparin drip and nitroglycerin drip will be also started. Cardiology consultation will be obtained. Serial troponins will be done. We will follow the Cardiology recommendation on this. Replace potassium. Decrease dose of home insulin as she is going to be n.p.o. Echocardiography per Cardiology. Continue home medication for rheumatoid arthritis and hypothyroidism. The patient is full code. PATIENT'S NAME: GONZALES, ALISSA S [facility] AGE: 56 Y [address] ROOM: [address] [address] LOCATION: [facility] ADMIT DATE: 03/18/2017 History & Physical DISCHARGE DATE: FAMILY PHYSICIAN: ANTHONY RUIZ MD ATTENDING PHYSICIAN: JEM GOMEZ JEM GOMEZ MD TIM/elverl /[id number] D: [id number] T: [id number] HISTORY & PHYSICAL
[~2017-03-18 03:37] MED LIST changes: -PRINIVIL (ZESTRI5 MG PO
[2017-03-18 04:01] LABS: BASOPHIL % 0.4 %; EOSINOPHIL # 0.1 K/uL (0.0-0.5); EOSINOPHIL % 0.7 %; HEMATOCRIT 32.3 % (33.0-46.0); HEMOGLOBIN 10.3 g/dL (10.0-15.0); IMMATURE GRANULOCYTE # 0.1 K/uL (0.0-0.3); IMMATURE GRANULOCYTE % 0.9 %; LYMPHOCYTE # 2.4 K/uL (0.8-4.0); LYMPHOCYTE % 22.7 %; MCH 28.4 pg (27.0-34.0); MCHC 31.9 gm/dL (32.0-36.5); MONOCYTE # 0.9 K/uL (0.0-1.0); MONOCYTE % 8.1 %; MPV 9.3 fl (9.4-12.4); NEUTROPHIL # (ANC) 7.1 K/uL (1.8-7.8); NEUTROPHIL % 67.2 %; NRBC % 0 /100WBC (0-0.00); PLATELET COUNT 307 K/uL (150-450); RBC 3.63 M/uL (3.50-5.50); RDW-CV 15.9 % (11.9-14.6); WBC 10.5 K/uL (4.0-11.0)
[2017-03-18 04:12] LABS: INR - (THERAPEUTIC) 0.93 (0.92-1.07); PROTIME 9.8 SECONDS (9.8-11.4); PTT 24 SECONDS (25-32)
[2017-03-18 04:20] LABS: ALBUMIN 2.7 gm/dL (3.5-5.0); ALK PHOS 72 IU/L (33-138); ALT 24 IU/L (12-78); ANION GAP 14.5 (10.0-19.0); AST 13 IU/L (10-40); BLOOD UREA NITROGEN 26 mg/dL (6-24); CALCIUM 8.4 mg/dL (8.5-10.5); CHLORIDE 106 mMol/L (96-110); CO2 26 mMol/L (22-32); CPK 37 IU/L (21-215); CREATININE 1.1 mg/dL (0.5-1.1); MAGNESIUM 1.8 mg/dL (1.8-2.6); POTASSIUM 3.5 mMol/L (3.7-5.1); SODIUM 143 mMol/L (135-145); TOTAL BILIRUBIN 0.2 mg/dL (0.0-1.5); TOTAL PROTEIN 6.7 g/dL (6.0-8.4)
[2017-03-18] MEDS ORDERED: PRINIVIL (ZESTRI5 MG PO (05:51)
[2017-03-18] MEDS ORDERED: AMARYL2 MG PO (05:51)
[2017-03-18 06:16] LABS: CPK 38 IU/L (21-215)
--- NOTE | 2017-03-18 06:43 | NUR ---
PATIENT ADMITTED TO PCU AROUND 0540 FROM ER FOR C/O OF CHEST PAIN. PATIENT CALLED EMS THIS NIGHT AFTER HAVING PRESSURE/TIGHTNESS IN THE MIDDLE OF HER CHEST THAT RADIATED TO THROAT/NECK AREA. PATIENT RECEIVED 3 SUB-LINGUAL NITRO AND 4 BABY ASPIRIN BEFORE GETTING TO THE ER. PATIENT IS A/0X3. SBA. AFEBRILE. HR 80'S SR. 97% ON 2L PER ACLS PROTOCOL. 116/58. PATIENT STILL HAVING 3/10 L) SIDE PRESSURE WITH THROBBING PAIN IN HER TEETH AREA. IV TO R) FA WITH HEPARIN RUNNING AT 1000 UNITS/H, NITRO AT 20 MCG/MIN, AND NS @ TKO. BOLUSED HER 5000 UNITS AND STARTED HEPARIN AT 0525. DOCTOR WAS DOWN IN ER SEEING PATIENT AND WRITING ORDERS.
--- NOTE | 2017-03-18 15:41 | NUR ---
Significant Event: A/O X3. UP WITH SBA TO BATHROOM. VOIDING WELL, 2300 ML UOP. LASIX 40 MG IV X1 THIS AM. NITRO GTT DC'D @ 1030. PO RANEXA AND IMDUR INITIATED. HEPARIN GTT CONTINUES, CURRENTLY @ 1200 UNIT/HR, NEXT PTTHP @ 1800. VSS. WEANED TO ROOM AIR. IV TO RIGHT FA. 2 MG MAG SULFATE IV REPLACED. 40 MEQ KCL PO X1 REPLACED. ECHO DONE, TANA TO SEE PT TOMORROW. Follow up: CONTINUE TO MONITOR AND ASSESS FOR CHEST PAIN.
--- NOTE | 2017-03-19 07:22 | NUR ---
Significant Event: Patient is alert/oriented x3. Vital signs stable. On room air. Denies any pain. Heparin at 1600 units/hr. NPO since midnight. Follow up: Dr. MIKEL Linares to see patient today.
[2017-03-19 07:44] LABS: BASOPHIL % 0.4 %; EOSINOPHIL # 0.1 K/uL (0.0-0.5); EOSINOPHIL % 1.4 %; HEMATOCRIT 32.3 % (33.0-46.0); IMMATURE GRANULOCYTE # 0.1 K/uL (0.0-0.3); LYMPHOCYTE # 2.2 K/uL (0.8-4.0); LYMPHOCYTE % 22.4 %; MCH 27.6 pg (27.0-34.0); MCV 89.2 fl (83.0-98.0); MONOCYTE # 0.8 K/uL (0.0-1.0); MONOCYTE % 7.7 %; NEUTROPHIL # (ANC) 6.5 K/uL (1.8-7.8); NEUTROPHIL % 67.1 %; NRBC % 0 /100WBC (0-0.00); PLATELET COUNT 274 K/uL (150-450); RBC 3.62 M/uL (3.50-5.50); RDW-CV 16.2 % (11.9-14.6); WBC 9.7 K/uL (4.0-11.0)
[2017-03-19 08:03] LABS: CPK 33 IU/L (21-215)
[2017-03-19 08:04] LABS: ANION GAP 9.9 (10.0-19.0); CALCIUM 8.4 mg/dL (8.5-10.5); CREATININE 0.9 mg/dL (0.5-1.1); POTASSIUM 3.9 mMol/L (3.7-5.1)
--- NOTE | 2017-03-19 13:31 | NUR ---
[facility] note 1330 Patient admitted with chest pain, as of this time patient states they are going to make some changes in her medication. Patient reports having type 1 diabetes since she was in her 20's and last A1C in the spring of this year was 6.1 %. Last documented A1C here was on 11/19/16 at 8 %, currently on Levemir and Novolog. Diabetes Management Booklet and Assessment Form provided and asked patient to complete this afternoon, will check on patient in a.m. to assess further education needs. At this time, patient denies needing any assistance with supplies and denies further questions at this time regarding her diabetes.
--- NOTE | 2017-03-19 15:00 | NUR ---
Introduced self and role of care management to patient. Patient lives in [place] with her . She hopes to go home tomorrow. She uses a cane at home. Was on [facility] but says their last visit was last week. She does not anticipate discharge needs at this time. Will follow.
--- NOTE | 2017-03-19 19:00 | NUR ---
Significant Event: Alert and oriented. Vital signs stable. Denies any chest pain or pressure. Does feel slightly short of breath at times. Ambulated in [place] without difficulty. Denies complaints or additional needs. Follow up:
--- NOTE | 2017-03-20 04:37 | NUR ---
Significant Event: PATIENT IS A/O X3. VSS. HR 70-80'S. SBP 110-130'S. AFEBRILE. 02 SATS IN MID 90'S ON RA. NO C/O PAIN. LUNGS CLEAR/DIM TO DIM. UP WITH SBA TO RESTROOM. BOWELS HYPOACTIVE. NO C/O CONSTIPATION. VOIDING ADEQUATELY. IV TO RIGHT FOREARM SL WITH GOOD BLOOD RETURN. ON ACHS ACCUCHECKS. Follow up: CONTINUE TO MONITOR PER PLAN OF CARE. POSSBILY HOME IN AM?
[2017-03-20 04:41] LABS: BASOPHIL % 0.5 %; EOSINOPHIL # 0.1 K/uL (0.0-0.5); EOSINOPHIL % 1.1 %; HEMATOCRIT 30.4 % (33.0-46.0); HEMOGLOBIN 9.6 g/dL (10.0-15.0); IMMATURE GRANULOCYTE # 0.1 K/uL (0.0-0.3); IMMATURE GRANULOCYTE % 1.5 %; LYMPHOCYTE # 1.8 K/uL (0.8-4.0); MCHC 31.6 gm/dL (32.0-36.5); MCV 88.6 fl (83.0-98.0); MONOCYTE # 0.7 K/uL (0.0-1.0); MONOCYTE % 9.6 %; NEUTROPHIL # (ANC) 4.8 K/uL (1.8-7.8); NEUTROPHIL % 63.3 %; NRBC % 0 /100WBC (0-0.00); PLATELET COUNT 277 K/uL (150-450); RBC 3.43 M/uL (3.50-5.50); RDW-CV 16.3 % (11.9-14.6); WBC 7.5 K/uL (4.0-11.0)
[2017-03-20 05:03] LABS: ALBUMIN 2.5 gm/dL (3.5-5.0); CALCIUM 8.5 mg/dL (8.5-10.5)
--- NOTE | 2017-03-20 11:00 | NUR ---
Spoke with patient and spouse. They are planning on her going home today. Has needed DME at home. Denies discharge needs at this time.
--- NOTE | 2017-03-20 11:42 | NUR ---
[facility] center note; Patient has completed the Diabetes Assessment form and there are no educational needs identified at this time, states she has all of the supplies she needs to care for herself. Patient is encouraged to schedule a dental appointment because she has not recently had one. Encouraged to contact [facility] if needing any additional support.
[2017-03-20] MEDS ORDERED: RANEXA ER500 MG PO (14:24)
== END 2017-03-20 15:30 | disposition disaster alternative care site (69) | DRG 302 ==
LOC: GMED 03:37 → GPCU 05:07
PROVIDERS: Emergency Medicine; Family Medicine; Internal Medicine Interventional Cardiology; ADMIT Internal Medicine
DX: I25.110 Atherosclerotic heart disease of native coronary artery with unstable angina pectoris (principal); I50.43 Acute on chronic combined systolic (congestive) and diastolic (congestive) heart failure; J96.01 Acute respiratory failure with hypoxia; E66.01 Morbid (severe) obesity due to excess calories; E11.9 Type 2 diabetes mellitus without complications; D63.8 Anemia in other chronic diseases classified elsewhere; E03.9 Hypothyroidism, unspecified; M06.9 Rheumatoid arthritis, unspecified; Z95.1 Presence of aortocoronary bypass graft; I25.5 Ischemic cardiomyopathy; Z79.82 Long term (current) use of aspirin; Z68.39 Body mass index [BMI] 39.0-39.9, adult
CPT/HCPCS: C8929; J1644; J1940; J2405; J3475; Q9957

== ENCOUNTER → 2017-03-18 | Outpatient (CLI) | payer BC ==
[~2017-03-18] MED LIST changes: +PRINIVIL (ZESTRI5 MG PO
== END | disposition disaster alternative care site (69) ==
LOC: GAMB 03:04
DX: R07.89 Other chest pain (principal); I20.0 Unstable angina; R11.0 Nausea; Z95.1 Presence of aortocoronary bypass graft; Z79.82 Long term (current) use of aspirin; Z88.2 Allergy status to sulfonamides; Z88.5 Allergy status to narcotic agent